=== PATIENT | male | born 1950 | race Hispanic/Latino ===

== ENCOUNTER 2016-09-27 09:10 | Day surgery (SDC) | payer MEDICARE, OTHER ==
[2014-12-28 22:22] VITALS: BMI 36.9
[2016-09-27 09:42] VITALS: TEMP 98.5
[2016-09-27] MEDS ORDERED: Propofol 10 mg/ml Inj (20 ML) ONE ×2 (10:31→11:05)
[2016-09-27] MEDS ORDERED: Lidocaine 1% Inj (20ml) ONE (10:32)
[2016-09-27] MEDS ORDERED: Midazolam 2 MG/2 ML VIAL ONE (10:32)
[2016-09-27] MEDS ORDERED: Simethicone 40 mg/0.6 ml Liquid (30 ml) ONE (10:41)
[2016-09-27] MEDS ORDERED: Sodium Chloride 0.9% 1,000 ML IV SCH (11:30)
[2016-09-27 11:51] VITALS: PULSE 79; RESP 16
[2016-09-27 13:26] VITALS: BP 124/82; O2SAT 96
== END 2016-09-27 13:21 | disposition home or self-care (01) ==
LOC: ENDO 09:10
PROVIDERS: ATTEND Internal Medicine Gastroenterology
DX: Z12.11 Encounter for screening for malignant neoplasm of colon (principal); K64.8 Other hemorrhoids; K51.90 Ulcerative colitis, unspecified, without complications; K22.70 Barrett's esophagus without dysplasia; K29.50 Unspecified chronic gastritis without bleeding; Z98.890 Other specified postprocedural states; I10 Essential (primary) hypertension; J44.9 Chronic obstructive pulmonary disease, unspecified; Z90.49 Acquired absence of other specified parts of digestive tract; Z79.899 Other long term (current) drug therapy; K21.9 Gastro-esophageal reflux disease without esophagitis
CPT/HCPCS: 45380; 43239; 88305; 88312; 88342; J2250; J2704; J7040 ×2

== ENCOUNTER 2017-02-17 21:29 | Inpatient (IN) | payer MEDICARE, OTHER ==
[2017-02-17 21:35] VITALS: BMI 36.5
--- NOTE | 2017-02-17 21:50 | ED PDOC ---
Arrival/HPI - General Historian: Patient <Melody Glasgow A - Last Filed: 02/17/17 23:36> <Angelito Almaguer - Last Filed: 02/18/17 00:02> - General Chief Complaint: Lower Extremity Problem/Injury Time Seen by Provider: 02/17/17 21:40 - History of Present Illness Narrative History of Present Illness (Text): 02/17/17 21:48 66yo male with PMHx of hypertension, COPD, Hypercholestremia, biba for right ankle pain s/p trauma. Patient notes that he "stumbled" while getting out of his car this evening. Reports drinking alcohol s/p. Denies hitting head anywhere. denies LOC. Denies any other complaint. (Melody Glasgow A) Past Medical History - Provider Review Nursing Documentation Reviewed: Yes - Infectious Disease Hx of Infectious Diseases: None - Tetanus Immunization Tetanus Immunization: Unknown - Cardiac Hx Hypertension: Yes Hx Pacemaker: No - Pulmonary Hx Chronic Obstructive Pulmonary Disease (COPD): Yes - Neurological Hx Paralysis: No - HEENT Hx HEENT Disorder: No - Renal Hx Renal Disorder: No - Endocrine/Metabolic Hx Endocrine Disorders: No - Hematological/Oncological Hx Blood Transfusions: No - Integumentary Hx Dermatological Disorder: No - Musculoskeletal/Rheumatological Hx Musculoskeletal Disorders: Yes - Gastrointestinal Hx Gastrointestinal Disorders: Yes Hx Crohn's Disease: (colitis) Other/Comment: Colitis, - Genitourinary/Gynecological Hx Genitourinary Disorders: No - Psychiatric Hx Emotional Abuse: No Hx Physical Abuse: No Hx Substance Use: No - Surgical History Hx Arthroscopy: Yes (Bilateral knees) Hx Orthopedic Surgery: Yes (C5-C6 fusion) Hx Tonsillectomy: Yes Other/Comment: Colon resection secondary to colitis - Anesthesia Hx Anesthesia: Yes Hx Anesthesia Reactions: Yes ("INTENSE STOMACH PAIN") Hx Malignant Hyperthermia: No - Suicidal Assessment Feels Threatened In Home Enviroment: No <Melody Glasgow A - Last Filed: 02/17/17 23:36> Family/Social History - Physician Review Nursing Documentation Reviewed: Yes Family/Social History: Unknown Family HX Smoking Status: Current Some Days Smoker Hx Alcohol Use: Yes (SOCIAL) Hx Substance Use: No Hx Substance Use Treatment: No <Melody Glasgow A - Last Filed: 02/17/17 23:36> Allergies/Home Meds <Melody Glasgow - Last Filed: 02/17/17 23:36> <TrippAngelito - Last Filed: 02/18/17 00:02> Allergies/Adverse Reactions: Allergies codeine Allergy (Verified 02/17/17 21:35) PAIN morphine Allergy (Verified 02/17/17 21:35) PAIN Home Medications: Home Meds Medication Instructions Recorded Confirmed Mesalamine [Apriso] 4 tab PO DAILY 07/04/13 02/17/17 amLODIPine [Norvasc] 5 mg PO DAILY 07/04/13 02/17/17 Arformoterol [Brovana] 5 mcg NEB BID 07/25/14 02/17/17 Budesonide [Pulmicort Respules] 0.25 mg NEB BID 07/25/14 02/17/17 Ibuprofen [Motrin Tab] 200 mg PO PRN PRN 07/25/14 02/17/17 Tiotropium [Spiriva] 18 mcg IH DAILY 07/25/14 02/17/17 Lansoprazole [Prevacid] 30 mg PO DAILY 09/19/16 02/17/17 Valsartan [Diovan] 160 mg PO DAILY 09/19/16 02/17/17 Review of Systems - Physician Review All systems were reviewed & negative as marked: Yes - Review of Systems Constitutional: Normal Eyes: Normal ENT: Normal Respiratory: Normal Cardiovascular: Normal Gastrointestinal: Normal Genitourinary Male: Normal Musculoskeletal: Arthralgias (Right ankle pain) Skin: Normal Neurological: Normal Endocrine: Normal Hemo/Lymphatic: Normal Psychiatric: Normal <Melody Glasgow - Last Filed: 02/17/17 23:36> Physical Exam Vital Signs Reviewed: Yes Temperature: Afebrile Blood Pressure: Normal Pulse: Regular Respiratory Rate: Normal Appearance: Positive for: Well-Appearing, Non-Toxic, Comfortable, Other ( Morbidly obese) Pain Distress: None Mental Status: Positive for: Alert and Oriented X 3 - Systems Exam Head: Present: Atraumatic, Normocephalic Pupils: Present: PERRL Extroacular Muscles: Present: EOMI Conjunctiva: Present: Normal Mouth: Present: Moist Mucous Membranes Neck: Present: Normal Range of Motion Respiratory/Chest: Present: Clear to Auscultation, Good Air Exchange. No: Respiratory Distress, Accessory Muscle Use Cardiovascular: Present: Regular Rate and Rhythm, Normal S1, S2. No: Murmurs Abdomen: Present: Normal Bowel Sounds. No: Tenderness, Distention, Peritoneal Signs Back: Present: Normal Inspection Upper Extremity: Present: Normal Inspection. No: Cyanosis, Edema Lower Extremity: Present: NORMAL PULSES, Tenderness (Right ankle ), Swelling, Deformity, Neurovascularly Intact. No: Edema, CALF TENDERNESS, Normal ROM ( Unable to ascess secondary to pain) Neurological: Present: GCS=15, CN II-XII Intact, Speech Normal Skin: Present: Warm, Dry, Normal Color. No: Rashes Psychiatric: Present: Alert, Oriented x 3, Normal Insight, Normal Concentration <DiruHappiness A - Last Filed: 02/17/17 23:36> Vital Signs Temp Pulse Resp BP Pulse Ox 02/17/17 21:47 98.3 F 88 18 122/83 97 Medical Decision Making <PeeHappiness A - Last Filed: 02/17/17 23:36> <Angelito Almaguer - Last Filed: 02/18/17 00:02> ED Course and Treatment: 02/17/17 23:28 PT in ED for stated history. He denied any opiate in Ed, states he is allergic to it. His pain was controlled with with Toradol and Tylenol. He is NVI. Right ankle xray - Trimalleolar fracture with displaced and comminuted distal fibula. Posterior and sugar tong splint was placed. Labs ordered for admission. Case was DANILO Jeff. He requested that pt be admitted to the PMD and he will take pt to OR tomorrow. Case was DANILO jaramillo while he was in ED and he accepted pt for admission. Xray result and plan was DW the pt and he agreed. (Diru,Happiness A) - Lab Interpretations Lab Results: 02/17/17 23:04 Lab Results 02/17/17 23:04: Sodium 134, Potassium 4.2, Chloride 95 L, Carbon Dioxide 26, Anion Gap 17, BUN 11, Creatinine 0.9, Est GFR ( Amer) > 60, Est GFR (Non- Af Amer) > 60, Random Glucose 111 H, Calcium 9.0, Total Bilirubin 0.7, AST 30, ALT 25, Alkaline Phosphatase 67, Total Protein 8.1, Albumin 4.5, Globulin 3.5, Albumin/Globulin Ratio 1.3 02/17/17 23:04: PT 11.4, INR 1.04, APTT 25.5 - RAD Interpretation Radiology Orders: 02/17/17 21:40 ANKLE RIGHT 3 VIEWS ROUTINE [RAD] Stat 02/17/17 21:43 TIBIA FIBULA RIGHT [RAD] Stat 02/17/17 23:16 CHEST PORTABLE [RAD] Stat - Medication Orders Current Medication Orders: Discontinued Medications Ketorolac Tromethamine (Toradol) 60 mg IM STAT STA Stop: 02/17/17 21:45 Last Admin: 02/17/17 22:03 Dose: 60 mg MAR Pain Assessment Document 02/17/17 22:03 MAIKEL (Rec: 02/17/17 22:03 MAIKEL [id number]) Pain Reassessment Is this a pain reassessment? 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 KARSON has examined the patient and agrees with the treatment plan. <Angelito Almaguer - Last Filed: 02/18/17 00:02> Disposition/Present on Arrival - Present on Arrival Any Indicators Present on Arrival: No History of DVT/PE: No History of Uncontrolled Diabetes: No Urinary Catheter: No History of Decub. Ulcer: No History Surgical Site Infection Following: None - Disposition Have Diagnosis and Disposition been Completed?: Yes Disposition Time: 23:30 <Melody Glasgow - Last Filed: 02/17/17 23:36> <Angelito Almaguer - Last Filed: 02/18/17 00:02> - Disposition Diagnosis: Trimalleolar fracture Disposition: HOSPITALIZED Patient Problems: Current Active Problems Problem Status Onset Trimalleolar fracture Acute Condition: FAIR Referrals: Gwyn Mcknight MD [Primary Care Provider] - Follow up with primary Forms: [employer] (Romanian)
[2017-02-17 23:21] LABS: ALB/GLOB RATIO 1.3 (1.1-1.8); ALKALINE PHOSPHATASE 67 U/L (38-126); ALT/SGPT 25 U/L (7-56); AST/SGOT 30 U/L (17-59); BILIRUBIN,TOTAL 0.7 mg/dL (0.2-1.3); BLOOD UREA NITROGEN 11 mg/dL (7-21); CARBON DIOXIDE 26 mmol/L (21-33); CHLORIDE 95 mmol/L (98-107); GFR AFRICAN-AMERICAN > 60; GLUCOSE,RANDOM 111 mg/dL (70-110); POTASSIUM 4.2 mmol/L (3.6-5.0); SODIUM 134 mmol/L (132-148); TOTAL PROTEIN 8.1 g/dL (5.8-8.3)
[2017-02-17 23:50] LABS: INR 1.04 (0.93-1.08)
[2017-02-17 23:51] LABS: PARTIAL THROMBOPLASTIN TIME 25.5 Seconds (25.1-36.5)
--- NOTE | 2017-02-18 00:12 | CP.PCM.HP ---
History of Present Illness - History of Present Illness History of Present Illness: CC: Fall, Ankle Pain Subjective: HPI: Patient is a 66 year old male with past medical history of COPD, HTN, and colitis who presents to the emergency department via EMS for evaluation and treatment of a fall and right ankle pain. The patient states that he was drinking alcohol (3 shots of hard liquor and 6 beers) which is greater than his normal regiment of drinking a couple of beers twice a week. Patient fell while trying to get out of the car. Denies LOC, head trauma, and dizziness. Patient denies intractable headache, fever, chills, dizziness, blurry vision, ringing in the ears, chest pain, shortness of breath, abdominal pain, nausea, vomiting, diarrhea, constipation, and urinary symptoms. ROS: 12 point review of systems negative except as indicated in HPI PMHx: COPD, HTN, colitis PSHx: cholecystectomy, colectomy (8inches total), bilateral knee surgeries, cervical spine fusion (unsure of levels), tonsilectomy Allergies: NDKA Family Hx: noncontributory Social Hx: social ETOH use, quit 2 years ago however smoked 1-1.5 ppd for 40 years, denies illicit drug use Medications: Please see medication reconciliation Physical Examination: - Constitutional Appears: Non-toxic, No Acute Distress - Head Exam Head Exam: atraumatic, normocephalic - Eye Exam Eye Exam: Normal appearance, PERRL. absent: Scleral icterus - ENT Exam ENT Exam: Mucous Membranes Moist - Neck Exam Neck exam: Normal Inspection - Respiratory Exam Respiratory Exam: Normal Breathing Pattern - Cardiovascular Exam Cardiovascular Exam: +S1, +S2. absent: Gallop, JVD - GI/Abdominal Exam GI & Abdominal Exam: Normal Bowel Sounds, absent: Distended, Guarding, Pulsatile Mass, Rebound, Rigid - Extremities Exam Extremities exam: right ankle is wrapped in mally bandage, as per witness ankle joint was displaced; right upper extremity- minor skin tears on dorsal aspect of digits 2-5 - Neurological Exam Neurological exam: Patient is awake, alert, responds to verbal stimuli, answers questions appropriately, follows commands, and moves extremities past midline - Psychiatric Exam Psychiatric exam: Normal Affect, Normal Mood - Skin Skin Exam: right upper extremity- minor skin tears on dorsal aspect of digits 2 -5 Assessment and Plan: Patient is a 66 year old male with past medical history of COPD, HTN, colitis who is admitted for evaluation and treatment of a fall and right ankle pain. Mechanical Fall; Right Lower Extremity Injury - Orthopedic surgery consulted- appreciate recommendations - Toradol given in ED for pain control - Right ankle and tibia/fibula xrays are pending offical reads at time of admission - NPO - IVF nS @ 100 - Further pain control with tylenol as patient is allergic to morphine/codeine and NSAIDs are contraindicated as patient may need operative correction of the right lower extremity Chronic COPD - duobnebs q4 prn - no solumedrol as patient is not wheezing - consider pulmonology consult pending clinical course Potential ETOH Withdrawal - no ETOH level or ordered by ED CIWA - high risk fall precautions - consider ativan 1mg q6 prn withdrawl symptoms - consider adding librium or geodon if sxs are not controlled - multivitamin, thiamine, and folate supplement Hx of Htn - c/w - hydralazine 5mg IV q6 prn SBP > 180, holding parameters- do not administer if HR is > 100 bpm Prophylaxis - DVT ppx- subq heparin as per lefty score - GI ppx- famotidine CBC is pending prior to admit order being placed by ED Patient case discussed with and plan approved by attending physician. 02/17/17 23:56 Past Patient History - Infectious Disease Hx of Infectious Diseases: None - Tetanus Immunizations Tetanus Immunization: Unknown - Past Social History Smoking Status: Current Some Days Smoker - CARDIAC Hx Hypertension: Yes Hx Pacemaker: No - PULMONARY Hx Chronic Obstructive Pulmonary Disease (COPD): Yes - NEUROLOGICAL Hx Paralysis: No - HEENT Hx HEENT Problems: No - RENAL Hx Chronic Kidney Disease: No - ENDOCRINE/METABOLIC Hx Endocrine Disorders: No - HEMATOLOGICAL/ONCOLOGICAL Hx Blood Transfusions: No - INTEGUMENTARY Hx Dermatological Problems: No - MUSCULOSKELETAL/RHEUMATOLOGICAL Hx Musculoskeletal Disorders: Yes - GASTROINTESTINAL Hx Gastrointestinal Disorders: Yes Hx Crohn's Disease: (colitis) Other/Comment: Colitis, - GENITOURINARY/GYNECOLOGICAL Hx Genitourinary Disorders: No - PSYCHIATRIC Hx Emotional Abuse: No Hx Physical Abuse: No Hx Substance Use: No - SURGICAL HISTORY Hx Arthroscopy: Yes (Bilateral knees) Hx Orthopedic Surgery: Yes (C5-C6 fusion) Hx Tonsillectomy: Yes Other/Comment: Colon resection secondary to colitis - ANESTHESIA Hx Anesthesia: Yes Hx Anesthesia Reactions: Yes ("INTENSE STOMACH PAIN") Hx Malignant Hyperthermia: No Meds Allergies/Adverse Reactions: Allergies Allergy/AdvReac Type Severity Reaction Status Date / Time codeine Allergy PAIN Verified 02/17/17 21:35 morphine Allergy PAIN Verified 02/17/17 21:35 Results - Vital Signs Recent Vital Signs: Last Vital Signs Temp 98.3 F 02/17/17 21:47 Pulse 88 02/17/17 21:47 Resp 18 02/17/17 21:47 BP 122/83 02/17/17 21:47 Pulse Ox 97 02/17/17 21:47 - Labs Result Diagrams: 02/17/17 23:04 Labs: Laboratory Results - last 24 hr 02/17/17 02/17/17 23:04 23:04 PT 11.4 INR 1.04 APTT 25.5 Sodium 134 Potassium 4.2 Chloride 95 L Carbon Dioxide 26 Anion Gap 17 BUN 11 Creatinine 0.9 Est GFR ( Amer) > 60 Est GFR (Non-Af Amer) > 60 Random Glucose 111 H Calcium 9.0 Total Bilirubin 0.7 AST 30 ALT 25 Alkaline Phosphatase 67 Total Protein 8.1 Albumin 4.5 Globulin 3.5 Albumin/Globulin Ratio 1.3
--- NOTE | 2017-02-18 00:19 | CP.PCM.HP ---
History of Present Illness - History of Present Illness History of Present Illness: CC: Fall, Ankle Pain Subjective: HPI: Patient is a 66 year old male with past medical history of COPD, HTN, and colitis who presents to the emergency department via EMS for evaluation and treatment of a fall and right ankle pain. The patient states that he was drinking alcohol (3 shots of hard liquor and 6 beers) which is greater than his normal regimen of drinking a couple of beers twice a week. Patient fell while trying to get out of the car. Denies LOC, head trauma, and dizziness. Admit to the localized right ankle pain. Sharp in nature. Originally 10/10 mildly improved after receiving toradol in ED. Patient denies intractable headache, fever, chills, dizziness, blurry vision, ringing in the ears, chest pain, shortness of breath, abdominal pain, nausea, vomiting, diarrhea, constipation, and urinary symptoms. ROS: 12 point review of systems negative except as indicated in HPI PMHx: COPD, HTN, colitis PSHx: cholecystectomy, colectomy (8inches total), bilateral knee surgeries, cervical spine fusion (unsure of levels), tonsilectomy Allergies: NDKA Family Hx: noncontributory Social Hx: social ETOH use, quit 2 years ago however smoked 1-1.5 ppd for 40 years, denies illicit drug use Medications: Please see medication reconciliation Physical Examination: - Constitutional Appears: Non-toxic, No Acute Distress - Head Exam Head Exam: atraumatic, normocephalic - Eye Exam Eye Exam: Normal appearance, PERRL. absent: Scleral icterus - ENT Exam ENT Exam: Mucous Membranes Moist - Neck Exam Neck exam: Normal Inspection - Respiratory Exam Respiratory Exam: Normal Breathing Pattern - Cardiovascular Exam Cardiovascular Exam: +S1, +S2. absent: Gallop, JVD - GI/Abdominal Exam GI & Abdominal Exam: Normal Bowel Sounds, absent: Distended, Guarding, Pulsatile Mass, Rebound, Rigid - Extremities Exam Extremities exam: right ankle is wrapped in mally bandage, as per witness ankle joint was displaced; right upper extremity- minor skin tears on dorsal aspect of digits 2-5 - Neurological Exam Neurological exam: Patient is awake, alert, responds to verbal stimuli, answers questions appropriately, follows commands, and moves extremities past midline - Psychiatric Exam Psychiatric exam: Normal Affect, Normal Mood - Skin Skin Exam: right upper extremity- minor skin tears on dorsal aspect of digits 2 -5 Assessment and Plan: Patient is a 66 year old male with past medical history of COPD, HTN, colitis who is admitted for evaluation and treatment of a fall and right ankle pain. Mechanical Fall; Right Lower Extremity Injury - Orthopedic surgery consulted- appreciate recommendations - Toradol given in ED for pain control - Right ankle and tibia/fibula xrays are pending offical reads at time of admission - NPO - IVF nS @ 100 - Further pain control with tylenol as patient is allergic to morphine/codeine and NSAIDs are contraindicated as patient may need operative correction of the right lower extremity Chronic COPD - duobnebs q4 prn - no solumedrol as patient is not wheezing - consider pulmonology consult pending clinical course Potential ETOH Withdrawal - no ETOH level or ordered by ED- will order ETOH level and UDS - CIWA - high risk fall precautions - consider ativan 1mg q6 prn withdrawl symptoms pending clinical course - no need for multivitamin, thiamine, and folate supplement at this time Hx of Htn - confirm home medications dosages prior to administering - hydralazine 5mg IV q6 prn SBP > 180, holding parameters- do not administer if HR is > 100 bpm Prophylaxis - DVT ppx- subq heparin as per lefty score - GI ppx- famotidine CBC is pending prior to admit order being placed by ED Patient case discussed with and plan approved by attending physician. 02/17/17 23:56 Present on Admission - Present on Admission Any Indicators Present on Admission: No Past Patient History - Infectious Disease Hx of Infectious Diseases: None - Tetanus Immunizations Tetanus Immunization: Unknown - Past Social History Smoking Status: Current Some Days Smoker - CARDIAC Hx Hypertension: Yes Hx Pacemaker: No - PULMONARY Hx Chronic Obstructive Pulmonary Disease (COPD): Yes - NEUROLOGICAL Hx Paralysis: No - HEENT Hx HEENT Problems: No - RENAL Hx Chronic Kidney Disease: No - ENDOCRINE/METABOLIC Hx Endocrine Disorders: No - HEMATOLOGICAL/ONCOLOGICAL Hx Blood Transfusions: No - INTEGUMENTARY Hx Dermatological Problems: No - MUSCULOSKELETAL/RHEUMATOLOGICAL Hx Musculoskeletal Disorders: Yes - GASTROINTESTINAL Hx Gastrointestinal Disorders: Yes Hx Crohn's Disease: (colitis) Other/Comment: Colitis, - GENITOURINARY/GYNECOLOGICAL Hx Genitourinary Disorders: No - PSYCHIATRIC Hx Emotional Abuse: No Hx Physical Abuse: No Hx Substance Use: No - SURGICAL HISTORY Hx Arthroscopy: Yes (Bilateral knees) Hx Orthopedic Surgery: Yes (C5-C6 fusion) Hx Tonsillectomy: Yes Other/Comment: Colon resection secondary to colitis - ANESTHESIA Hx Anesthesia: Yes Hx Anesthesia Reactions: Yes ("INTENSE STOMACH PAIN") Hx Malignant Hyperthermia: No Meds Allergies/Adverse Reactions: Allergies Allergy/AdvReac Type Severity Reaction Status Date / Time codeine Allergy PAIN Verified 02/17/17 21:35 morphine Allergy PAIN Verified 02/17/17 21:35 Results - Vital Signs Recent Vital Signs: Last Vital Signs Temp 98.3 F 02/17/17 21:47 Pulse 88 02/17/17 21:47 Resp 18 02/17/17 21:47 BP 122/83 02/17/17 21:47 Pulse Ox 97 02/17/17 21:47 - Labs Result Diagrams: 02/17/17 23:04 Labs: Laboratory Results - last 24 hr 02/17/17 02/17/17 23:04 23:04 PT 11.4 INR 1.04 APTT 25.5 Sodium 134 Potassium 4.2 Chloride 95 L Carbon Dioxide 26 Anion Gap 17 BUN 11 Creatinine 0.9 Est GFR ( Amer) > 60 Est GFR (Non-Af Amer) > 60 Random Glucose 111 H Calcium 9.0 Total Bilirubin 0.7 AST 30 ALT 25 Alkaline Phosphatase 67 Total Protein 8.1 Albumin 4.5 Globulin 3.5 Albumin/Globulin Ratio 1.3
[2017-02-18] MEDS: Sodium Chloride 0.9% 1,000 ML IV SCH ×2 (00:29→12:19)
[2017-02-18 03:35] LABS: BASO # 0.03 K/mm3 (0.0-2.0); BASO % 0.3 % (0.0-3.0); EOS # 0.1 (0.0-0.7); EOS % 1.4 % (1.5-5.0); GRAN # 6.99 (1.4-6.5); GRAN % 67.5 % (50.0-68.0); HEMATOCRIT 44.6 % (42.0-52.0); LYMPH # 2.5 (1.2-3.4); LYMPH % 24.5 % (22.0-35.0); MEAN CELL VOLUME 92.3 fl (80.0-105.0); MEAN CORPUSCULAR HEMOGLOBIN 31.3 pg (25.0-35.0); MEAN CORPUSCULAR HGB CONC 33.9 g/dl (31.0-37.0); MEAN PLATELET VOLUME 10.2 fl (7.0-11.0); MONO # 0.7 (0.1-0.6); MONO % 6.3 % (1.0-6.0); RED CELL DISTRIBUTION WIDTH 12.5 % (11.5-14.5); WHITE BLOOD COUNT 10.4 10^3/ul (4.5-11.0)
[2017-02-18 07:37] LABS: BASO # 0.02 K/mm3 (0.0-2.0); BASO % 0.2 % (0.0-3.0); EOS # 0.2 (0.0-0.7); EOS % 1.6 % (1.5-5.0); GRAN # 8.44 (1.4-6.5); GRAN % 69.6 % (50.0-68.0); HEMATOCRIT 40.6 % (42.0-52.0); LYMPH # 2.7 (1.2-3.4); LYMPH % 21.9 % (22.0-35.0); MEAN CELL VOLUME 90.8 fl (80.0-105.0); MEAN CORPUSCULAR HEMOGLOBIN 30.9 pg (25.0-35.0); MEAN PLATELET VOLUME 9.9 fl (7.0-11.0); MONO # 0.8 (0.1-0.6); MONO % 6.7 % (1.0-6.0); RED CELL DISTRIBUTION WIDTH 12.5 % (11.5-14.5); WHITE BLOOD COUNT 12.1 10^3/ul (4.5-11.0)
[2017-02-18 08:20] LABS: ALB/GLOB RATIO 1.2 (1.1-1.8); ALKALINE PHOSPHATASE 65 U/L (38-126); ALT/SGPT 29 U/L (7-56); AST/SGOT 26 U/L (17-59); BILIRUBIN,TOTAL 0.8 mg/dL (0.2-1.3); BLOOD UREA NITROGEN 9 mg/dL (7-21); CALCIUM 8.3 mg/dL (8.4-10.5); CARBON DIOXIDE 20 mmol/L (21-33); CHLORIDE 101 mmol/L (98-107); GFR AFRICAN-AMERICAN > 60; GLUCOSE,RANDOM 89 mg/dL (70-110); POTASSIUM 3.8 mmol/L (3.6-5.0); SODIUM 134 mmol/L (132-148)
--- NOTE | 2017-02-18 09:27 | RAD ---
PROCEDURE: Right ankle dated 02/17/2017 HISTORY: Status post trauma with ankle pain. COMPARISON: No prior however correlation made with concurrent radiographs of the right tibia and fibula. FINDINGS: BONES: Fracture dislocation of the distal tibia and fibula. There is medial and anterior displacement of the right distal fibula. There also appears to be medial displacement of the proximal fibular fragment as well with widening of the anteromedial aspect of the of the ankle mortise. . Surrounding soft tissue swelling with infiltration subcutaneous tissues that extends proximally over the distal 1/2 of the right lower extremity JOINTS: Normal. No osteoarthritis. Ankle mortise maintained. Talar dome intact SOFT TISSUES: Normal. OTHER FINDINGS: None. IMPRESSION: Fracture dislocation of the distal tibia and fibula with medial displacement of the distal tibia and fibula with respect to the talar dome. There is widening of the anteromedial aspect of the ankle mortise
--- NOTE | 2017-02-18 09:29 | RAD ---
PROCEDURE: Right tibia and fibula dated 02/17/2017. HISTORY: ankle pain COMPARISON: Correlation made with concurrent radiographs of the right ankle TECHNIQUE: AP and lateral views performed. FINDINGS: BONES: Fracture dislocation of the distal tibia and fibula poorly seen due to patient positioning however please refer to concurrent radiographs and corresponding report right ankle. Remaining osseous structures appear intact. JOINT SPACES: Tricompartmental degenerative changes of the right knee most notably affecting the lateral and patellofemoral compartments OTHER FINDINGS: Infiltration changes within the subcutaneous tissues of the over the distal 1/2 of the right lower extremity. IMPRESSION: Fracture dislocation distal tibia fibula poorly seen due to patient positioning for this radiograph ; please refer to concurrent radiographs and corresponding report right ankle DJD right knee.
--- NOTE | 2017-02-18 09:29 | RAD ---
HISTORY: admission COMPARISON: Comparison made with prior study 06/25/2015. FINDINGS: LUNGS: No active pulmonary disease. PLEURA: No significant pleural effusion identified, no pneumothorax apparent. CARDIOVASCULAR: Heart appears borderline/ mildly enlarged OSSEOUS STRUCTURES: No significant abnormalities. VISUALIZED UPPER ABDOMEN: Normal. OTHER FINDINGS: None. IMPRESSION: No active disease.
[2017-02-18] MEDS ORDERED: Non Formulary Medication (Valsartan [Diovan] 160 MG) PO SCH (10:00)
[2017-02-18] MEDS ORDERED: MESALAMINE PO SCH (10:00)
[2017-02-18] MEDS ORDERED: Budesonide 0.25 mg/2 ml Inhal Susp UD INH SCH (10:00)
--- NOTE | 2017-02-18 10:43 | CARD ---
APPROVED REPORT EKG Measurement Heart [id number] <Conclusion> Normal sinus rhythm Low voltage QRS Borderline ECG
[2017-02-18] MEDS ORDERED: Succinylcholine 200 mg/10 ml Inj IV ONE (11:53)
[2017-02-18] MEDS ORDERED: Midazolam 2 MG/2 ML VIAL ONE (11:53)
[2017-02-18] MEDS ORDERED: Rocuronium 10 mg/ml (5 ml) ONE (11:53)
[2017-02-18] MEDS ORDERED: Propofol 10 mg/ml Inj (20 ML) ONE (11:54)
[2017-02-18] MEDS: MESALAMINE PO SCH (12:18)
[2017-02-18] MEDS: Tiotropium 18 mcg Cap For Inhalation IH SCH (12:19)
[2017-02-18] MEDS ORDERED: Neostigmine Methylsulfate 3mg/3ml Syringe IV ONE (12:48)
[2017-02-18] MEDS ORDERED: Sodium Chloride 0.9% 1,000 ML IV SCH (13:45)
[2017-02-18] MEDS: ceFAZolin 1 GM in Sodium Chloride 0.9% 50 ML IVPB SCH ×2 (19:20→22:13)
[2017-02-18] MEDS: Albuterol-Ipratrop 3 mg / 0.5 (3 ml) UD IH PRN (21:10)
[2017-02-18] MEDS: Budesonide 0.25 mg/2 ml Inhal Susp UD IH SCH (21:10)
--- NOTE | 2017-02-19 00:06 | OP ---
PROCEDURE DATE: 02/18/2017 PREOPERATIVE DIAGNOSIS: Highly comminuted swollen displaced fracture dislocation of right ankle with comminuted lateral malleolus and medial malleolus and posterior dislocation of talus and lateral subluxation of the talus. POSTOPERATIVE DIAGNOSIS: Highly comminuted swollen displaced fracture dislocation of right ankle with comminuted lateral malleolus and medial malleolus and posterior dislocation of talus and lateral subluxation of the talus. PROCEDURE: Closed reduction and application of transarticular external fixator from [employer] with three carbon rods incorporating the tibia and the calcaneus and the first metatarsal. TYPE OF ANESTHESIA: General endotracheal tube. DESCRIPTION OF PROCEDURE: The patient was taken to the OR, right ankle prepped and draped in sterile fashion. Seeing that we could reduce with a C-arm, it was highly displaced and comminuted, too swollen laterally and medially, more medially to do an open reduction and internal fixation safely, so we put the external fixator on, general anesthesia via endotracheal tube, incorporating the two pins, hairpins in the tibia, one [id number] pin for the calcaneus, connecting them with the carbon fiber rods that held the fracture reduced, and we dorsiflexed the foot to stabilize the reduction of theankle. All our pins were put in with stab wounds. Sterile dressing was done with compression and sent to recovery room in good condition. Naga Jeff DO YOEL
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
[2017-02-19] MEDS: Sodium Chloride 0.9% 1,000 ML IV SCH (06:19)
[2017-02-19] MEDS: Budesonide 0.25 mg/2 ml Inhal Susp UD IH SCH ×2 (08:08→20:38)
[2017-02-19 08:11] LABS: BASO # 0.02 K/mm3 (0.0-2.0); BASO % 0.2 % (0.0-3.0); EOS # 0.1 (0.0-0.7); EOS % 1.7 % (1.5-5.0); GRAN # 5.49 (1.4-6.5); GRAN % 66.2 % (50.0-68.0); HEMATOCRIT 39.1 % (42.0-52.0); LYMPH # 1.9 (1.2-3.4); LYMPH % 23.3 % (22.0-35.0); MEAN CELL VOLUME 92.9 fl (80.0-105.0); MEAN CORPUSCULAR HEMOGLOBIN 31.6 pg (25.0-35.0); MONO # 0.7 (0.1-0.6); MONO % 8.6 % (1.0-6.0); RED CELL DISTRIBUTION WIDTH 12.8 % (11.5-14.5); WHITE BLOOD COUNT 8.3 10^3/ul (4.5-11.0)
[2017-02-19 08:20] LABS: ALB/GLOB RATIO 1.1 (1.1-1.8); ALKALINE PHOSPHATASE 62 U/L (38-126); ALT/SGPT 25 U/L (7-56); AST/SGOT 27 U/L (17-59); BILIRUBIN,TOTAL 1.2 mg/dL (0.2-1.3); BLOOD UREA NITROGEN 11 mg/dL (7-21); CALCIUM 8.4 mg/dL (8.4-10.5); CARBON DIOXIDE 23 mmol/L (21-33); CHLORIDE 107 mmol/L (98-107); GFR AFRICAN-AMERICAN > 60; GLUCOSE,RANDOM 104 mg/dL (70-110); SODIUM 139 mmol/L (132-148); TOTAL PROTEIN 6.6 g/dL (5.8-8.3)
[2017-02-19] MEDS: Enoxaparin 30 mg Syringe SC SCH (10:38)
[2017-02-19] MEDS: Aspirin 325 mg EC Tablets PO SCH (10:39)
[2017-02-19] MEDS: POLYETHYLENE GLYCOL 3350 17 GM/Dose PACKET PO SCH (10:40)
[2017-02-19] MEDS: MESALAMINE PO SCH (10:40)
[2017-02-19] MEDS: Tiotropium 18 mcg Cap For Inhalation IH SCH (10:41)
--- NOTE | 2017-02-19 13:10 | CP.PCM.PN ---
<Brandi Coe - Last Filed: 02/19/17 13:15> Subjective - Date & Time of Evaluation Date of Evaluation: 02/19/17 Time of Evaluation: 09:00 - Subjective Subjective: Brandi Coe DO, PGY-1: Hospitalist Service Patient seen and examined at bedside. Patient reports he is urinating fine; has not passed a BM yet. Patient reports pain is well controlled with Toradol. Nurse reports no events overnight. Objective - Vital Signs/Intake and Output Vital Signs (last 24 hours): Temp Pulse Resp BP Pulse Ox 98.4 F 86 19 133/61 96 02/19/17 06:00 02/19/17 06:00 02/19/17 06:00 02/19/17 10:38 02/19/17 06:00 Intake and Output: 02/19/17 02/19/17 06:59 18:59 Intake Total 660 Output Total 1460 Balance -800 - Medications Medications: Current Medications Acetaminophen (Tylenol 325mg Tab) 650 mg PO Q4 PRN PRN Reason: Pain, moderate (4-7) Albuterol/Ipratropium (Duoneb 3 Mg/0.5 Mg (3 Ml) Ud) 3 ml IH [id number] PRN PRN Reason: Shortness of Breath Last Admin: 02/18/17 21:10 Dose: 3 ml Amlodipine Besylate (Norvasc) 5 mg PO DAILY [facility] Last Admin: 02/19/17 10:38 Dose: 5 mg Aspirin (Ecotrin) 325 mg PO DAILY [facility] Last Admin: 02/19/17 10:39 Dose: 325 mg Budesonide (Pulmicort Respules) 0.25 mg IH [id number] [facility] Last Admin: 02/19/17 08:08 Dose: 0.25 mg Docusate Sodium (Colace) 100 mg PO TID [facility] Last Admin: 02/19/17 10:39 Dose: Not Given Enoxaparin Sodium (Lovenox) 30 mg SC DAILY [facility] PRN Reason: Protocol Last Admin: 02/19/17 10:38 Dose: 30 mg Famotidine (Pepcid) 20 mg IVP DAILY [facility] Last Admin: 02/19/17 10:39 Dose: 20 mg Hydralazine HCl (Apresoline) 10 mg IVP Q6 PRN PRN Reason: Systolic Blood Pressure Sodium Chloride (Sodium Chloride 0.9%) 1,000 mls @ 100 mls/hr IV .Q10H [facility] Last Admin: 02/19/17 06:19 Dose: 100 mls/hr Ketorolac Tromethamine (Toradol) 15 mg IVP Q6 PRN PRN Reason: Pain, moderate (4-7) Last Admin: 02/19/17 11:30 Dose: 15 mg Ketorolac Tromethamine (Toradol) 30 mg IVP ONCE PRN PRN Reason: Pain, moderate (4-7) Lorazepam (Ativan) 1 mg IVP Q4 PRN; Protocol PRN Reason: Anxiety Losartan Potassium (Cozaar) 100 mg PO DAILY [facility] Last Admin: 02/19/17 10:38 Dose: 100 mg Non-Formulary Medication (Mesalamine [Apriso]) 4 tab PO DAILY [facility] Last Admin: 02/19/17 10:40 Dose: Not Given Ondansetron HCl (Zofran Inj) 4 mg IVP ONCE PRN PRN Reason: Nausea/Vomiting Polyethylene Glycol (Miralax) 17 gm PO DAILY [facility] Last Admin: 02/19/17 10:40 Dose: Not Given Tiotropium [place] (Spiriva) 18 mcg IH DAILY [facility] Last Admin: 02/19/17 10:41 Dose: 18 mcg - Labs Labs: 02/19/17 07:30 02/19/17 07:30 PT 11.4 SECONDS (9.4-12.5) 02/17/17 23:04 INR 1.04 (0.93-1.08) 02/17/17 23:04 APTT 25.5 Seconds (25.1-36.5) 02/17/17 23:04 - Constitutional Appears: Non-toxic, No Acute Distress - Head Exam Head Exam: ATRAUMATIC, NORMOCEPHALIC - Eye Exam Eye Exam: EOMI, Normal appearance - ENT Exam ENT Exam: Mucous Membranes Moist, Normal Oropharynx - Neck Exam Neck Exam: Normal Inspection - Respiratory Exam Respiratory Exam: Clear to Ausculation Bilateral, NORMAL BREATHING PATTERN - Cardiovascular Exam Cardiovascular Exam: RRR, +S1, +S2 - GI/Abdominal Exam GI & Abdominal Exam: Soft, Normal Bowel Sounds - Extremities Exam Additional comments: right foot/ankle in cast, raised. - Back Exam Back Exam: NORMAL INSPECTION. absent: CVA tenderness (L), CVA tenderness (R) - Neurological Exam Neurological Exam: Alert, Awake, Oriented x3 Additional comments: sensation intact to right lower extremity. Patient can flex and extend toes bilaterally. - Psychiatric Exam Psychiatric exam: Normal Affect, Normal Mood - Skin Skin Exam: Dry, Intact, Normal Color, Warm Assessment and Plan - Assessment and Plan (Free Text) Assessment: Patient is a 66 year old male with past medical history of COPD, HTN, colitis who is admitted for evaluation and treatment of a fall and right ankle pain. Patient was found to have a highly comminuted swollen displaced fracture dislocation of the right ankle with comminuted lateral malleolus and medial malleolus and posterior dislocation of talus and lateral subluxation of the talus. Plan: Mechanical Fall; Right Lower Extremity Injury - Orthopedic surgery, Dr. Jeff, performed closed reduction and application of transarticular external fixator from [employer] with three carbon rods incorporating the tibia and the calcaneus and the first metatarsal - Toradol 15 mg q6h IVP - Docusate 100 mg PO daily - PEG 17 gm PO daily Chronic COPD - Duobnebs q4H prn - Budesonide 0.25 IH q12h Potential ETOH Withdrawal - Blood alcohol level of 191 on admission - CIWA - high risk fall precautions - Ativan 1mg q4h PRN for alcohol withdrawl symptoms Hypertension -Losartan 100 mg PO daily - hydralazine 5mg IV q6 prn SBP > 180, holding parameters- do not administer if HR is > 100 bpm Prophylaxis - DVT ppx- subq heparin as per lefty score - GI ppx- famotidine <Urban Mathis - Last Filed: 02/19/17 15:47> Objective - Vital Signs/Intake and Output Vital Signs (last 24 hours): Temp Pulse Resp BP Pulse Ox 98.4 F 86 19 133/61 96 02/19/17 06:00 02/19/17 06:00 02/19/17 06:00 02/19/17 10:38 02/19/17 06:00 Intake and Output: 02/19/17 02/19/17 06:59 18:59 Intake Total 660 Output Total 1460 Balance -800 - Medications Medications: Current Medications Acetaminophen (Tylenol 325mg Tab) 650 mg PO Q4 PRN PRN Reason: Pain, moderate (4-7) Albuterol/Ipratropium (Duoneb 3 Mg/0.5 Mg (3 Ml) Ud) 3 ml IH [id number] PRN PRN Reason: Shortness of Breath Last Admin: 02/18/17 21:10 Dose: 3 ml Amlodipine Besylate (Norvasc) 5 mg PO DAILY [facility] Last Admin: 02/19/17 10:38 Dose: 5 mg Aspirin (Ecotrin) 325 mg PO DAILY [facility] Last Admin: 02/19/17 10:39 Dose: 325 mg Budesonide (Pulmicort Respules) 0.25 mg IH [id number] [facility] Last Admin: 02/19/17 08:08 Dose: 0.25 mg Docusate Sodium (Colace) 100 mg PO TID [facility] Last Admin: 02/19/17 13:29 Dose: Not Given Enoxaparin Sodium (Lovenox) 30 mg SC DAILY [facility] PRN Reason: Protocol Last Admin: 02/19/17 10:38 Dose: 30 mg Famotidine (Pepcid) 20 mg IVP DAILY [facility] Last Admin: 02/19/17 10:39 Dose: 20 mg Hydralazine HCl (Apresoline) 10 mg IVP Q6 PRN PRN Reason: Systolic Blood Pressure Sodium Chloride (Sodium Chloride 0.9%) 1,000 mls @ 100 mls/hr IV .Q10H [facility] Last Admin: 02/19/17 06:19 Dose: 100 mls/hr Ketorolac Tromethamine (Toradol) 15 mg IVP Q6 PRN PRN Reason: Pain, moderate (4-7) Last Admin: 02/19/17 11:30 Dose: 15 mg Ketorolac Tromethamine (Toradol) 30 mg IVP ONCE PRN PRN Reason: Pain, moderate (4-7) Lorazepam (Ativan) 1 mg IVP Q4 PRN; Protocol PRN Reason: Anxiety Losartan Potassium (Cozaar) 100 mg PO DAILY [facility] Last Admin: 02/19/17 10:38 Dose: 100 mg Non-Formulary Medication (Mesalamine [Apriso]) 4 tab PO DAILY [facility] Last Admin: 02/19/17 10:40 Dose: Not Given Ondansetron HCl (Zofran Inj) 4 mg IVP ONCE PRN PRN Reason: Nausea/Vomiting Polyethylene Glycol (Miralax) 17 gm PO DAILY [facility] Last Admin: 02/19/17 10:40 Dose: Not Given Tiotropium [place] (Spiriva) 18 mcg IH DAILY [facility] Last Admin: 02/19/17 10:41 Dose: 18 mcg Tramadol HCl (Ultram) 50 mg PO TID PRN PRN Reason: Pain, severe (8-10) - Labs Labs: 02/19/17 07:30 02/19/17 07:30 PT 11.4 SECONDS (9.4-12.5) 02/17/17 23:04 INR 1.04 (0.93-1.08) 02/17/17 23:04 APTT 25.5 Seconds (25.1-36.5) 02/17/17 23:04 Attending/Attestation - Attestation I have personally seen and examined this patient.: Yes I have fully participated in the care of the patient.: Yes I have reviewed all pertinent clinical information, including history, physical exam and plan: Yes Notes (Text): 02/19/17 15:39 attending note; Patient seen and examined with resident. Patient is a 66-year-old male admitted with mechanical fall and right ankle fracture. Status post external fixator placement by orthopedics . Pain management with Toradol. hypertension; continue Norvasc and Cozaar. Colitis; continue mesalamine. history of alcohol use; not in withdrawal. Incentive spirometry/DVT prophylaxis. PT evaluation appreciated. Possible rehab versus home with services. upon discharge the patient will follow-up with PMD Dr. Mcknight.
--- NOTE | 2017-02-19 14:54 | RAD ---
PROCEDURE: Right ankle dated the 02/19/2017. HISTORY: Postoperative assessment. COMPARISON: Comparison made with prior radiographs right ankle and right tibia fibula dated 02/17/2017. FINDINGS: Current study reveals interval application of external fixation device with the proximal component attached by 2 threaded screws to the distal tibial shaft and the distal component attached by threaded screw to the proximal 1st metatarsal. Apparent on calcaneal external component as well. . Impression: Status post application external fixation device reducing fractures - dislocation of the distal right tibia/fibula
--- NOTE | 2017-02-19 15:32 | PN ---
DATE: 02/19/2017 POSTOPERATIVE REPORT The patient had surgery yesterday, which is 02/18/2017. The patient underwent closed reduction and application of external fixator of his highly comminuted and swollen right ankle fracture. Wanted to do ORIF, so we temporized the treatment of the ankle fracture with external fixator. When the swelling the goes down enough, we could do a formal open reduction and internal fixation. Occasionally, this might take 10 days to 2 weeks. In the meantime, we will get him to therapy for crutches, ambulate, nonweightbearing on that right leg with either walker or crutches and plan to send him home for a period of time. I could follow him in the office because it is important he does move around and not lay around, ankle has to be elevated. So, going home would be a good thing because he will be forced to move around when he has son to help him and he is pretty physically fit to move around. So, I will see him again probably tomorrow, hopefully we can discharge him with ambulatory devices and see if we can get him to start physical therapy. If not, we will just have to see him in the office in a week, and decide when to bring him back for formal open reduction and internal fixation. Naga Jeff DO
[2017-02-19] MEDS: Albuterol-Ipratrop 3 mg / 0.5 (3 ml) UD IH PRN (20:37)
[2017-02-20] MEDS ORDERED: Pantoprazole 40 mg EC Tab PO SCH (06:00)
[2017-02-20 06:30] LABS: BASO # 0.02 K/mm3 (0.0-2.0); BASO % 0.2 % (0.0-3.0); EOS # 0.2 (0.0-0.7); EOS % 2.2 % (1.5-5.0); GRAN # 5.18 (1.4-6.5); GRAN % 62.7 % (50.0-68.0); HEMATOCRIT 39.1 % (42.0-52.0); LYMPH # 2.2 (1.2-3.4); MEAN CELL VOLUME 94.2 fl (80.0-105.0); MEAN CORPUSCULAR HEMOGLOBIN 30.6 pg (25.0-35.0); MEAN CORPUSCULAR HGB CONC 32.5 g/dl (31.0-37.0); MEAN PLATELET VOLUME 9.9 fl (7.0-11.0); MONO # 0.7 (0.1-0.6); MONO % 7.9 % (1.0-6.0); RED CELL DISTRIBUTION WIDTH 12.9 % (11.5-14.5); WHITE BLOOD COUNT 8.3 10^3/ul (4.5-11.0)
[2017-02-20 07:01] LABS: ALB/GLOB RATIO 1.1 (1.1-1.8); ALKALINE PHOSPHATASE 65 U/L (38-126); ALT/SGPT 26 U/L (7-56); AST/SGOT 29 U/L (17-59); BILIRUBIN,TOTAL 1.1 mg/dL (0.2-1.3); BLOOD UREA NITROGEN 10 mg/dL (7-21); CALCIUM 8.6 mg/dL (8.4-10.5); CARBON DIOXIDE 25 mmol/L (21-33); CHLORIDE 105 mmol/L (98-107); GFR AFRICAN-AMERICAN > 60; GLUCOSE,RANDOM 113 mg/dL (70-110); POTASSIUM 4.2 mmol/L (3.6-5.0); SODIUM 139 mmol/L (132-148); TOTAL PROTEIN 6.9 g/dL (5.8-8.3)
[2017-02-20] MEDS: Enoxaparin 30 mg Syringe SC SCH (09:43)
[2017-02-20] MEDS: POLYETHYLENE GLYCOL 3350 17 GM/Dose PACKET PO SCH (09:44)
[2017-02-20] MEDS: MESALAMINE PO SCH (09:44)
[2017-02-20] MEDS: Tiotropium 18 mcg Cap For Inhalation IH SCH (09:44)
[2017-02-20] MEDS: Aspirin 325 mg EC Tablets PO SCH (09:45)
--- NOTE | 2017-02-20 10:10 | CT ---
PROCEDURE: CT of the right ankle HISTORY: rt ankle fx in ext fixater COMPARISON: Plain films dated 02/17/2017 TECHNIQUE: Radiation dose: Total exam DLP = 293 mGy-cm. This CT exam was performed using one or more of the following dose reduction techniques: Automated exposure control, adjustment of the mA and/or kV according to patient size, and/or use of iterative reconstruction technique. FINDINGS: An external fixation device is in place. The alignment of the ankle joint is restored. There is a displaced comminuted fracture of the lateral malleolus. There is a displaced comminuted fracture of the medial malleolus anteriorly. There is a minimally displaced fracture of the posterior malleolus. The talar dome is intact IMPRESSION: An external fixation device is in place. The alignment of the ankle joint is restored.
[2017-02-20] MEDS: Budesonide 0.25 mg/2 ml Inhal Susp UD IH SCH ×2 (11:00→19:58)
[2017-02-20] MEDS: Albuterol-Ipratrop 3 mg / 0.5 (3 ml) UD IH PRN (11:00)
--- NOTE | 2017-02-20 12:13 | RAD ---
PROCEDURE: Fluoroscopy up to 1 hour HISTORY: EXTERNAL FIXATION OF RIGHT ANKLE FX. COMPARISON: TECHNIQUE: Fluoroscopy was provided in the operating room. 40 seconds of fluoro time were used. Six images were submitted FINDINGS: The study shows placement of an external fixation device. There is improved alignment of the ankle joint. IMPRESSION: As above
--- NOTE | 2017-02-20 14:05 | CP.PCM.DIS ---
<CliffordClifford - Last Filed: 02/20/17 16:06> Provider - Provider Date of Admission: 02/17/17 23:55 Attending physician: Urban Mathis MD Primary care physician: Gwyn Mcknight MD Time Spent in preparation of Discharge (in minutes): 45 Hospital Course - Lab Results Lab Results: Most Recent Lab Values WBC 8.3 10^3/ul (4.5-11.0) 02/20/17 05:30 RBC 4.15 10^6/uL (3.5-6.1) 02/20/17 05:30 Hgb 12.7 g/dL (14.0-18.0) L 02/20/17 05:30 Hct 39.1 % (42.0-52.0) L 02/20/17 05:30 MCV 94.2 fl (80.0-105.0) 02/20/17 05:30 MCH 30.6 pg (25.0-35.0) 02/20/17 05:30 MCHC 32.5 g/dl (31.0-37.0) 02/20/17 05:30 RDW 12.9 % (11.5-14.5) 02/20/17 05:30 Plt Count 196 10^3/uL (120.0-450.0) 02/20/17 05:30 MPV 9.9 fl (7.0-11.0) 02/20/17 05:30 Gran % 62.7 % (50.0-68.0) 02/20/17 05:30 Lymph % (Auto) 27.0 % (22.0-35.0) 02/20/17 05:30 Hill % (Auto) 7.9 % (1.0-6.0) H 02/20/17 05:30 Eos % (Auto) 2.2 % (1.5-5.0) 02/20/17 05:30 Baso % (Auto) 0.2 % (0.0-3.0) 02/20/17 05:30 Gran # 5.18 (1.4-6.5) 02/20/17 05:30 Lymph # 2.2 (1.2-3.4) 02/20/17 05:30 Hill # 0.7 (0.1-0.6) H 02/20/17 05:30 Eos # 0.2 (0.0-0.7) 02/20/17 05:30 Baso # 0.02 K/mm3 (0.0-2.0) 02/20/17 05:30 PT 11.4 SECONDS (9.4-12.5) 02/17/17 23:04 INR 1.04 (0.93-1.08) 02/17/17 23:04 APTT 25.5 Seconds (25.1-36.5) 02/17/17 23:04 Sodium 139 mmol/L (132-148) 02/20/17 05:30 Potassium 4.2 mmol/L (3.6-5.0) 02/20/17 05:30 Chloride 105 mmol/L (98-107) 02/20/17 05:30 Carbon Dioxide 25 mmol/L (21-33) 02/20/17 05:30 Anion Gap 13 (10-20) 02/20/17 05:30 BUN 10 mg/dL (7-21) 02/20/17 05:30 Creatinine 0.9 mg/dl (0.8-1.5) 02/20/17 05:30 Est GFR ( Amer) > 60 02/20/17 05:30 Est GFR (Non-Af Amer) > 60 02/20/17 05:30 Random Glucose 113 mg/dL (70-110) H 02/20/17 05:30 Calcium 8.6 mg/dL (8.4-10.5) 02/20/17 05:30 Total Bilirubin 1.1 mg/dL (0.2-1.3) 02/20/17 05:30 AST 29 U/L (17-59) 02/20/17 05:30 ALT 26 U/L (7-56) 02/20/17 05:30 Alkaline Phosphatase 65 U/L (38-126) 02/20/17 05:30 Total Protein 6.9 g/dL (5.8-8.3) 02/20/17 05:30 Albumin 3.7 g/dL (3.0-4.8) 02/20/17 05:30 Globulin 3.3 gm/dL 02/20/17 05:30 Albumin/Globulin Ratio 1.1 (1.1-1.8) 02/20/17 05:30 Alcohol, Quantitative 191 mg/dL (0-10) H 02/18/17 00:40 - Hospital Course Hospital Course: Patient is a 66 year old male with past medical history of COPD, HTN, and colitis who presents to the emergency department via EMS for evaluation and treatment of a fall and right ankle pain. The patient states that he was drinking alcohol (3 shots of hard liquor and 6 beers) which is greater than his normal regimen of drinking a couple of beers twice a week. Patient fell while trying to get out of the car. Denies LOC, head trauma, and dizziness. Admit to the localized right ankle pain. Sharp in nature. Originally 10/10 mildly improved after receiving toradol in ED. Patient denies intractable headache, fever, chills, dizziness, blurry vision, ringing in the ears, chest pain, shortness of breath, abdominal pain, nausea, vomiting, diarrhea, constipation, and urinary symptoms. The patient was admitted as a result for right distal tibia/fibular fracture. While admitted the patient had ankle xray that showed a fracture of distal tibia/fibula medial displacement of distal tibia and fibula with respect to talar dome. The patient had an alcohol level done that was positive at 191. The patient also had tibula and fibular xray that showed fracture dislocation of distal tibia/fibula. The patient also had a chest xray done that was negative for active disease. The patient was seen by Dr. Jeff who decided to do a external fixation for the time being. The patient is expected to have a formal open reduction and internal fixation once swelling goes down. The patient had a repeat ankle xray that was s/p external fixation reducing fractures and dislocation of right tibia/fibula. The patient was accepted to TCU and discharged there for further physical therapy treatment. Discharge Exam - Head Exam Head Exam: ATRAUMATIC, NORMOCEPHALIC - Eye Exam Eye Exam: EOMI, Normal appearance, PERRL. absent: Periorbital tenderness Pupil Exam: NORMAL ACCOMODATION, PERRL. absent: Irregular, Unequal - ENT Exam ENT Exam: Mucous Membranes Moist, Normal Oropharynx - Neck Exam Neck exam: Lymphadenopathy, Normal Inspection, Thyromegaly - Respiratory Exam Respiratory Exam: Clear to PA & Lateral, NORMAL BREATHING PATTERN, UNREMARKABLE. absent: Chest Wall Tenderness, Prolonged Expiratory Phase, Respiratory Distress - Cardiovascular Exam Cardiovascular Exam: REGULAR RHYTHM, +S1, +S2. absent: JVD, RRR, Rubs - GI/Abdominal Exam GI & Abdominal Exam: Normal Bowel Sounds, Unremarkable. absent: Distended, Firm , Hypoactive Bowel Sounds, Pulsatile Mass, Rebound - Extremities Exam Extremities exam: tenderness Additional comments: external fixator placed on the right ankle - Back Exam Back exam: NORMAL INSPECTION. absent: CVA tenderness (L), CVA tenderness (R), paraspinal tenderness - Neurological Exam Neurological exam: Alert, CN II-XII Intact, Oriented x3, Reflexes Normal - Psychiatric Exam Psychiatric exam: Normal Affect, Normal Mood - Skin Skin Exam: Dry, Intact, Normal Color, Warm Discharge Plan - Follow Up Plan Condition: FAIR Disposition: REHAB FACILITY/REHAB UNIT Instructions: Ankle Fracture (DC) Additional Instructions: 1. Patient to be discharged to TCU for further physical therapy. 2. Patient advised to return to emergency department for any new or worsening symptoms. Referrals: Gwyn Mcknight MD [Primary Care Provider] - <Urban Mathis - Last Filed: 02/20/17 17:13> Provider - Provider Date of Admission: 02/17/17 23:55 Attending physician: Urban Mathis MD Primary care physician: Gwyn Mcknight MD Hospital Course - Lab Results Lab Results: Most Recent Lab Values WBC 8.3 10^3/ul (4.5-11.0) 02/20/17 05:30 RBC 4.15 10^6/uL (3.5-6.1) 02/20/17 05:30 Hgb 12.7 g/dL (14.0-18.0) L 02/20/17 05:30 Hct 39.1 % (42.0-52.0) L 02/20/17 05:30 MCV 94.2 fl (80.0-105.0) 02/20/17 05:30 MCH 30.6 pg (25.0-35.0) 02/20/17 05:30 MCHC 32.5 g/dl (31.0-37.0) 02/20/17 05:30 RDW 12.9 % (11.5-14.5) 02/20/17 05:30 Plt Count 196 10^3/uL (120.0-450.0) 02/20/17 05:30 MPV 9.9 fl (7.0-11.0) 02/20/17 05:30 Gran % 62.7 % (50.0-68.0) 02/20/17 05:30 Lymph % (Auto) 27.0 % (22.0-35.0) 02/20/17 05:30 Hill % (Auto) 7.9 % (1.0-6.0) H 02/20/17 05:30 Eos % (Auto) 2.2 % (1.5-5.0) 02/20/17 05:30 Baso % (Auto) 0.2 % (0.0-3.0) 02/20/17 05:30 Gran # 5.18 (1.4-6.5) 02/20/17 05:30 Lymph # 2.2 (1.2-3.4) 02/20/17 05:30 Hill # 0.7 (0.1-0.6) H 02/20/17 05:30 Eos # 0.2 (0.0-0.7) 02/20/17 05:30 Baso # 0.02 K/mm3 (0.0-2.0) 02/20/17 05:30 PT 11.4 SECONDS (9.4-12.5) 02/17/17 23:04 INR 1.04 (0.93-1.08) 02/17/17 23:04 APTT 25.5 Seconds (25.1-36.5) 02/17/17 23:04 Sodium 139 mmol/L (132-148) 02/20/17 05:30 Potassium 4.2 mmol/L (3.6-5.0) 02/20/17 05:30 Chloride 105 mmol/L (98-107) 02/20/17 05:30 Carbon Dioxide 25 mmol/L (21-33) 02/20/17 05:30 Anion Gap 13 (10-20) 02/20/17 05:30 BUN 10 mg/dL (7-21) 02/20/17 05:30 Creatinine 0.9 mg/dl (0.8-1.5) 02/20/17 05:30 Est GFR ( Amer) > 60 02/20/17 05:30 Est GFR (Non-Af Amer) > 60 02/20/17 05:30 Random Glucose 113 mg/dL (70-110) H 02/20/17 05:30 Calcium 8.6 mg/dL (8.4-10.5) 02/20/17 05:30 Total Bilirubin 1.1 mg/dL (0.2-1.3) 02/20/17 05:30 AST 29 U/L (17-59) 02/20/17 05:30 ALT 26 U/L (7-56) 02/20/17 05:30 Alkaline Phosphatase 65 U/L (38-126) 02/20/17 05:30 Total Protein 6.9 g/dL (5.8-8.3) 02/20/17 05:30 Albumin 3.7 g/dL (3.0-4.8) 02/20/17 05:30 Globulin 3.3 gm/dL 02/20/17 05:30 Albumin/Globulin Ratio 1.1 (1.1-1.8) 02/20/17 05:30 Alcohol, Quantitative 191 mg/dL (0-10) H 02/18/17 00:40 Attending/Attestation - Attestation I have personally seen and examined this patient.: Yes I have fully participated in the care of the patient.: Yes I have reviewed all pertinent clinical information, including history, physical exam and plan: Yes Notes (Text): 02/20/17 17:12 attending note; Patient seen and examined with resident. Patient is a 66-year-old male admitted with mechanical fall and right ankle fracture. Status post external fixator placement by orthopedics . Pain management with Toradol. hypertension; continue Norvasc and Cozaar. Colitis; continue mesalamine. history of alcohol use; not in withdrawal. alcohol cessation is strongly advised. Incentive spirometry/DVT prophylaxis. PT evaluation appreciated. transfer to TCU today. upon discharge the patient will follow-up with PMD Dr. Mcknight. diagnosis; Fall Right ankle fracture Status post external fixator gait instability Hypertension
--- NOTE | 2017-02-20 14:23 | CP.PCM.DIS ---
Provider - Provider Date of Admission: 02/17/17 23:55 Attending physician: Urban Mathis MD Primary care physician: Gwyn Mcknight MD Time Spent in preparation of Discharge (in minutes): 45 Hospital Course - Lab Results Lab Results: Most Recent Lab Values WBC 8.3 10^3/ul (4.5-11.0) 02/20/17 05:30 RBC 4.15 10^6/uL (3.5-6.1) 02/20/17 05:30 Hgb 12.7 g/dL (14.0-18.0) L 02/20/17 05:30 Hct 39.1 % (42.0-52.0) L 02/20/17 05:30 MCV 94.2 fl (80.0-105.0) 02/20/17 05:30 MCH 30.6 pg (25.0-35.0) 02/20/17 05:30 MCHC 32.5 g/dl (31.0-37.0) 02/20/17 05:30 RDW 12.9 % (11.5-14.5) 02/20/17 05:30 Plt Count 196 10^3/uL (120.0-450.0) 02/20/17 05:30 MPV 9.9 fl (7.0-11.0) 02/20/17 05:30 Gran % 62.7 % (50.0-68.0) 02/20/17 05:30 Lymph % (Auto) 27.0 % (22.0-35.0) 02/20/17 05:30 [place] % (Auto) 7.9 % (1.0-6.0) H 02/20/17 05:30 Eos % (Auto) 2.2 % (1.5-5.0) 02/20/17 05:30 Baso % (Auto) 0.2 % (0.0-3.0) 02/20/17 05:30 Gran # 5.18 (1.4-6.5) 02/20/17 05:30 Lymph # 2.2 (1.2-3.4) 02/20/17 05:30 [place] # 0.7 (0.1-0.6) H 02/20/17 05:30 Eos # 0.2 (0.0-0.7) 02/20/17 05:30 Baso # 0.02 K/mm3 (0.0-2.0) 02/20/17 05:30 PT 11.4 SECONDS (9.4-12.5) 02/17/17 23:04 INR 1.04 (0.93-1.08) 02/17/17 23:04 APTT 25.5 Seconds (25.1-36.5) 02/17/17 23:04 Sodium 139 mmol/L (132-148) 02/20/17 05:30 Potassium 4.2 mmol/L (3.6-5.0) 02/20/17 05:30 Chloride 105 mmol/L (98-107) 02/20/17 05:30 Carbon Dioxide 25 mmol/L (21-33) 02/20/17 05:30 Anion Gap 13 (10-20) 02/20/17 05:30 BUN 10 mg/dL (7-21) 02/20/17 05:30 Creatinine 0.9 mg/dl (0.8-1.5) 02/20/17 05:30 Est GFR ( Amer) > 60 02/20/17 05:30 Est GFR (Non-Af Amer) > 60 02/20/17 05:30 Random Glucose 113 mg/dL (70-110) H 02/20/17 05:30 Calcium 8.6 mg/dL (8.4-10.5) 02/20/17 05:30 Total Bilirubin 1.1 mg/dL (0.2-1.3) 02/20/17 05:30 AST 29 U/L (17-59) 02/20/17 05:30 ALT 26 U/L (7-56) 02/20/17 05:30 Alkaline Phosphatase 65 U/L (38-126) 02/20/17 05:30 Total Protein 6.9 g/dL (5.8-8.3) 02/20/17 05:30 Albumin 3.7 g/dL (3.0-4.8) 02/20/17 05:30 Globulin 3.3 gm/dL 02/20/17 05:30 Albumin/Globulin Ratio 1.1 (1.1-1.8) 02/20/17 05:30 Alcohol, Quantitative 191 mg/dL (0-10) H 02/18/17 00:40 Discharge Exam - Head Exam Head Exam: ATRAUMATIC, NORMOCEPHALIC Discharge Plan - Follow Up Plan Condition: FAIR Disposition: REHAB FACILITY/REHAB UNIT Instructions: Ankle Fracture (DC) Additional Instructions: 1. Patient to be discharged to TCU for further physical therapy. 2. Patient advised to return to emergency department for any new or worsening symptoms. Referrals: Gwyn Mcknight MD [Primary Care Provider] -
[2017-02-20 17:42] VITALS: BP 140/82; RESP 20; TEMP 98.3; O2SAT 95
[2017-02-20 19:05] VITALS: PULSE 95
[2017-02-20] MEDS: Sodium Chloride 0.9% 1,000 ML IV SCH (19:26)
== END 2017-02-20 21:54 | DRG 493 ==
LOC: ED 21:29 → ERH 23:55 → 5RNO 02-18 01:53 → 3RNO 02-18 15:09
PROVIDERS: ADMIT Hospitalist; ATTEND Internal Medicine
PROC: 0QSG35Z Reposition Right Tibia with External Fixation Device, Percutaneous Approach (ICD-10-PCS; 2017-02-18)
PROC: 0QSJ35Z Reposition Right Fibula with External Fixation Device, Percutaneous Approach (ICD-10-PCS; principal; 2017-02-18 10:42)
DX: S82.61XA Displaced fracture of lateral malleolus of right fibula, initial encounter for closed fracture (principal); K50.90 Crohn's disease, unspecified, without complications; S82.51XA Displaced fracture of medial malleolus of right tibia, initial encounter for closed fracture; S93.01XA Subluxation of right ankle joint, initial encounter; S93.04XA Dislocation of right ankle joint, initial encounter; J44.9 Chronic obstructive pulmonary disease, unspecified; F10.10 Alcohol abuse, uncomplicated; I10 Essential (primary) hypertension; R26.9 Unspecified abnormalities of gait and mobility; Y90.6 Blood alcohol level of 120-199 mg/100 ml; W01.0XXA Fall on same level from slipping, tripping and stumbling without subsequent striking against object, initial encounter; Y92.414 Local residential or business street as the place of occurrence of the external cause; Z88.5 Allergy status to narcotic agent; Z87.891 Personal history of nicotine dependence

== ENCOUNTER 2017-02-20 21:50 | Inpatient (IN) | payer OTHER ==
[2017-02-20] MEDS ORDERED: Sodium Chloride 0.9% 1,000 ML IV SCH (22:45)
[2017-02-20 23:11] VITALS: BMI 40.4
[2017-02-21] MEDS: Budesonide 0.25 mg/2 ml Inhal Susp UD IH SCH ×2 (03:25→10:51)
[2017-02-21] MEDS: Pantoprazole 40 mg EC Tab PO SCH (05:08)
--- NOTE | 2017-02-21 07:02 | CP.PCM.HP ---
<Clifford Horton - Last Filed: 02/21/17 16:20> History of Present Illness - History of Present Illness History of Present Illness: Patient is a 66 year old male with past medical history of COPD, HTN, and colitis who presents to the emergency department via EMS for evaluation and treatment of a fall and right ankle pain. The patient states that he was drinking alcohol (3 shots of hard liquor and 6 beers) which is greater than his normal regimen of drinking a couple of beers twice a week. Patient fell while trying to get out of the car. Denies LOC, head trauma, and dizziness. Admit to the localized right ankle pain. Sharp in nature. Originally 10/10 mildly improved after receiving toradol in ED. Patient subsequently had an external fixation done by Dr. Jeff. Patient was then transferred to TCU for further rehabilitation.Patient denies intractable headache, fever, chills, dizziness, blurry vision, ringing in the ears, chest pain, shortness of breath, abdominal pain, nausea, vomiting, diarrhea, constipation, and urinary symptoms. Past medical history: COPD, HTN, colitis Past social history: cholecystectomy, colectomy (8inches total), bilateral knee surgeries, cervical spine fusion (unsure of levels), tonsilectomy Allergies: Denies Family history: noncontributory Social History: social alcohol use, quit 2 years ago however smoked 1-1.5 pack per day for 40 years, denies illicit drug use Medications: Please see medication reconciliation Present on Admission - Present on Admission Any Indicators Present on Admission: No Review of Systems - Constitutional Constitutional: As Per HPI - EENT Eyes: As Per HPI Ears: As Per HPI Nose/Mouth/Throat: As Per HPI - Cardiovascular Cardiovascular: As Per HPI - Respiratory Respiratory: As Per HPI - Gastrointestinal Gastrointestinal: As Per HPI - Genitourinary Genitourinary: As Per HPI - Musculoskeletal Musculoskeletal: As Per HPI - Integumentary Integumentary: As Per HPI - Neurological Neurological: As Per HPI - Endocrine Endocrine: As Per HPI - Hematologic/Lymphatic Hematologic: As Per HPI Past Patient History - Infectious Disease Hx of Infectious Diseases: None - Tetanus Immunizations Tetanus Immunization: Unknown - Past Social History Smoking Status: Former Smoker - CARDIAC Hx Hypercholesterolemia: Yes Hx Hypertension: Yes - PULMONARY Hx Chronic Obstructive Pulmonary Disease (COPD): Yes - NEUROLOGICAL Hx Neurological Disorder: No - HEENT Hx HEENT Problems: No - RENAL Hx Chronic Kidney Disease: No - ENDOCRINE/METABOLIC Hx Endocrine Disorders: No - HEMATOLOGICAL/ONCOLOGICAL Hx Blood Disorders: No - INTEGUMENTARY Hx Dermatological Problems: No - MUSCULOSKELETAL/RHEUMATOLOGICAL Hx Arthritis: Yes Hx Falls: Yes (02/18 admission) Hx Fractures: Yes (right ankle) Other/Comment: s/p external fixation 02/17 - GASTROINTESTINAL Hx Gastrointestinal Disorders: Yes Hx Crohn's Disease: (colitis) Other/Comment: Colitis, - GENITOURINARY/GYNECOLOGICAL Hx Genitourinary Disorders: No - PSYCHIATRIC Hx Emotional Abuse: No Hx Physical Abuse: No - SURGICAL HISTORY Hx Surgeries: Yes (left knee) - ANESTHESIA Hx Anesthesia Reactions: No Hx Malignant Hyperthermia: No Meds Allergies/Adverse Reactions: Allergies Allergy/AdvReac Type Severity Reaction Status Date / Time codeine Allergy Severe ANAPHYLAXIS Verified 02/20/17 23:16 morphine Allergy Severe ANAPHYLAXIS Verified 02/20/17 23:16 Physical Exam - Head Exam Head Exam: ATRAUMATIC, NORMAL INSPECTION, NORMOCEPHALIC - Eye Exam Eye Exam: EOMI, Normal appearance, PERRL. absent: Periorbital tenderness Pupil Exam: NORMAL ACCOMODATION, PERRL. absent: Mydriatic - ENT Exam ENT Exam: Mucous Membranes Moist, Normal Oropharynx - Neck Exam Neck exam: Positive for: Normal Inspection. Negative for: Meningismus - Respiratory Exam Respiratory Exam: Clear to Auscultation Bilateral, NORMAL BREATHING PATTERN. absent: Chest Wall Tenderness, Prolonged Expiratory Phase, Respiratory Distress - Cardiovascular Exam Cardiovascular Exam: REGULAR RHYTHM, +S1, +S2 - GI/Abdominal Exam GI & Abdominal Exam: Normal Bowel Sounds, Soft. absent: Distended, Hypoactive Bowel Sounds, Organomegaly, Tenderness - Extremities Exam Additional comments: right ankle has external fixator present and wrapped in a cast. - Back Exam Back exam: NORMAL INSPECTION. absent: CVA tenderness (L), CVA tenderness (R), paraspinal tenderness - Neurological Exam Neurological exam: Alert, CN II-XII Intact, Oriented x3 - Psychiatric Exam Psychiatric exam: Normal Affect, Normal Mood - Skin Skin Exam: Dry, Intact Results - Vital Signs Recent Vital Signs: Last Vital Signs Temp 98.2 F 02/20/17 22:53 Pulse 83 02/20/17 22:53 Resp 22 02/20/17 22:53 BP 143/70 02/20/17 22:53 Pulse Ox - Labs Result Diagrams: 02/21/17 06:00 02/21/17 06:00 Assessment & Plan - Assessment and Plan (Free Text) Assessment: Patient is a 66 year old male with past medical history of COPD, HTN, and colitis who s/p external fixation of distal tibia/ fibula POD day #1. Plan: Mechanical Fall (s/p external fixation reducing fractures-dislocation of distal tibia/fibula) -Patient POD #1. Swelling is decreasing upon examination. Pending resolution of swelling patient is expected to have a formal open reduction and internal fixation - Orthopedic surgery re-consulted. Will f/u with rec's - Continue Toradol for pain management. -Fluids D/c'ed. Patient tolerating food and drink PO with no nausea or vomiting. - Further pain control with tylenol as patient is allergic to morphine/codeine and NSAIDs are contraindicated as patient may need operative correction of the right lower extremity Chronic COPD - duobnebs q4 prn -encouraged patient to use incentive spirometer while healing. Advised patient to remain continue exercises in the bed while in TCU. Potential ETOH Withdrawal - no ETOH level or ordered by ED- will order ETOH level and UDS - CIWA - high risk fall precautions - continue ativan 1mg q4 prn for withdrawl symptoms Hx of Htn - confirm home medications dosages prior to administering - hydralazine 10mg IV q6 prn SBP > 180, holding parameters- do not administer if HR is > 100 bpm Prophylaxis - DVT ppx- Lovenox - GI ppx- Protonix <Urban Mathis - Last Filed: 02/21/17 18:37> Results - Vital Signs Recent Vital Signs: Last Vital Signs Temp 98.2 F 02/21/17 10:00 Pulse 74 02/21/17 10:00 Resp 18 02/21/17 10:00 BP 130/74 02/21/17 11:01 Pulse Ox 96 02/21/17 10:00 - Labs Result Diagrams: 02/21/17 06:00 02/21/17 06:00 Labs: Laboratory Results - last 24 hr 02/21/17 02/21/17 06:00 06:00 WBC 7.8 RBC 4.23 Hgb 13.1 L Hct 39.3 L MCV 92.9 MCH 31.0 MCHC 33.3 RDW 12.8 Plt Count 215 MPV 9.8 Gran % 64.2 Lymph % (Auto) 24.8 [place] % (Auto) 7.5 H Eos % (Auto) 3.2 Baso % (Auto) 0.3 Gran # 4.98 Lymph # 1.9 [place] # 0.6 Eos # 0.3 Baso # 0.02 Sodium 139 Potassium 4.0 Chloride 105 Carbon Dioxide 25 Anion Gap 13 BUN 11 Creatinine 0.9 Est GFR ( Amer) > 60 Est GFR (Non-Af Amer) > 60 Random Glucose 103 Calcium 9.0 Total Bilirubin 1.5 H AST 44 ALT 43 Alkaline Phosphatase 70 Total Protein 6.9 Albumin 3.7 Globulin 3.1 Albumin/Globulin Ratio 1.2 Attending/Attestation - Attestation I have personally seen and examined this patient.: Yes I have fully participated in the care of the patient.: Yes I have reviewed all pertinent clinical information: Yes Notes (Text): 02/21/17 18:33 attending note; Patient seen and examined with resident in TCU. Patient is a 66 year old male with past medical history of COPD, hypertension and colitis is admitted after right ankle fracture. Status post external fixator placement by orthopedics . Currently In TCU getting physical therapy. will follow-up with orthopedics for further plan. upon discharge the patient will follow-up with PMD Dr. Mcknight. 02/21/17 18:36
[2017-02-21 07:09] LABS: BASO # 0.02 K/mm3 (0.0-2.0); BASO % 0.3 % (0.0-3.0); EOS # 0.3 (0.0-0.7); EOS % 3.2 % (1.5-5.0); GRAN # 4.98 (1.4-6.5); GRAN % 64.2 % (50.0-68.0); HEMATOCRIT 39.3 % (42.0-52.0); LYMPH # 1.9 (1.2-3.4); LYMPH % 24.8 % (22.0-35.0); MEAN CELL VOLUME 92.9 fl (80.0-105.0); MEAN CORPUSCULAR HGB CONC 33.3 g/dl (31.0-37.0); MEAN PLATELET VOLUME 9.8 fl (7.0-11.0); MONO # 0.6 (0.1-0.6); MONO % 7.5 % (1.0-6.0); RED CELL DISTRIBUTION WIDTH 12.8 % (11.5-14.5); WHITE BLOOD COUNT 7.8 10^3/ul (4.5-11.0)
[2017-02-21 07:49] LABS: SODIUM 139 mmol/L (132-148)
[2017-02-21 07:53] LABS: ALB/GLOB RATIO 1.2 (1.1-1.8); ALKALINE PHOSPHATASE 70 U/L (38-126); ALT/SGPT 43 U/L (7-56); AST/SGOT 44 U/L (17-59); BILIRUBIN,TOTAL 1.5 mg/dL (0.2-1.3); BLOOD UREA NITROGEN 11 mg/dL (7-21); CARBON DIOXIDE 25 mmol/L (21-33); CHLORIDE 105 mmol/L (98-107); GFR AFRICAN-AMERICAN > 60; GLUCOSE,RANDOM 103 mg/dL (70-110); TOTAL PROTEIN 6.9 g/dL (5.8-8.3)
[2017-02-21] MEDS: Enoxaparin 30 mg Syringe SC SCH (11:00)
[2017-02-21] MEDS: Aspirin 325 mg EC Tablets PO SCH (11:00)
[2017-02-21] MEDS: MESALAMINE PO SCH (11:01)
[2017-02-21] MEDS: POLYETHYLENE GLYCOL 3350 17 GM/Dose PACKET PO SCH (11:03)
[2017-02-21] MEDS: Tiotropium 18 mcg Cap For Inhalation IH SCH (11:11)
--- NOTE | 2017-02-21 18:51 | CON ---
DATE: HISTORY OF PRESENT ILLNESS: The patient is a 66-year-old that was transferred from the floor with right ankle fracture that was put an external fixator on 02/18/2017. He is in TCU right now, waiting to have the swelling go down and then we could perform an open reduction and internal fixation of the right ankle fracture. There was comminuted bimalleolar that was initially dislocated, but is being held by the external fixator. We will change dressing tomorrow, see how the skin looks and make a determination when we can do the open reduction and internal fixation, hopefully in beginning of next week. In the meantime, he is to ambulate with the walker and no weightbearing on that the right leg. Naga Jeff DO
[2017-02-22] MEDS: Pantoprazole 40 mg EC Tab PO SCH (06:45)
[2017-02-22] MEDS: Aspirin 325 mg EC Tablets PO SCH (08:24)
[2017-02-22] MEDS: Enoxaparin 30 mg Syringe SC SCH (09:46)
[2017-02-22] MEDS: Tiotropium 18 mcg Cap For Inhalation IH SCH (09:47)
[2017-02-22] MEDS: MESALAMINE PO SCH (09:51)
[2017-02-22] MEDS: POLYETHYLENE GLYCOL 3350 17 GM/Dose PACKET PO SCH (09:55)
[2017-02-22] MEDS: Budesonide 0.25 mg/2 ml Inhal Susp UD IH SCH (10:43)
[2017-02-22] MEDS: Albuterol-Ipratrop 3 mg / 0.5 (3 ml) UD IH PRN ×2 (10:43→19:32)
--- NOTE | 2017-02-22 19:28 | PN ---
DATE: 02/22/2017 SUBJECTIVE: He has a comminuted displaced bimalleolar fracture of his right leg that was too swollen to do a primary ORIF when he came in on 02/17/2017, so he had a transarticular external fixator put in till the swelling subsides, and today I see him on TCU for I took the dressing down to check everything, his wounds are nice and dry and all the pin sites. He has overall good alignment of that fracture and the CAT scan helping me to decide out how to put his internal fixation plates and screws in, which we planned to do on 28/02/2017 at 07:30 in the morning. In the meantime, pin sites are so clean that we could let him take a shower and discontinue his Lovenox and just put him on aspirin for DVT prophylaxis as he has bleed through on his left leg from scratching. FINAL DIAGNOSIS: Comminuted displaced bimalleolar fracture of right ankle with external fixator that we will plan on doing open reduction and internal fixation because the swelling is down on 28/02/2017, and we will stop the Lovenox and put him on aspirin for deep venous thrombosis prophylaxis. Naga Jeff DO MTDD
[2017-02-23] MEDS: Pantoprazole 40 mg EC Tab PO SCH (05:03)
[2017-02-23] MEDS: Budesonide 0.25 mg/2 ml Inhal Susp UD IH SCH ×2 (07:19→19:48)
[2017-02-23 07:46] LABS: BASO # 0.02 K/mm3 (0.0-2.0); BASO % 0.2 % (0.0-3.0); EOS # 0.2 (0.0-0.7); EOS % 2.1 % (1.5-5.0); GRAN # 7.31 (1.4-6.5); GRAN % 66.5 % (50.0-68.0); HEMATOCRIT 40.7 % (42.0-52.0); LYMPH # 2.7 (1.2-3.4); LYMPH % 24.3 % (22.0-35.0); MEAN CELL VOLUME 93.3 fl (80.0-105.0); MEAN CORPUSCULAR HEMOGLOBIN 31.4 pg (25.0-35.0); MEAN CORPUSCULAR HGB CONC 33.7 g/dl (31.0-37.0); MEAN PLATELET VOLUME 9.4 fl (7.0-11.0); MONO # 0.8 (0.1-0.6); MONO % 6.9 % (1.0-6.0); RED CELL DISTRIBUTION WIDTH 12.9 % (11.5-14.5)
[2017-02-23 08:24] LABS: ALB/GLOB RATIO 1.2 (1.1-1.8); ALKALINE PHOSPHATASE 76 U/L (38-126); ALT/SGPT 63 U/L (7-56); AST/SGOT 58 U/L (17-59); BILIRUBIN,TOTAL 1.8 mg/dL (0.2-1.3); BLOOD UREA NITROGEN 28 mg/dL (7-21); CALCIUM 9.4 mg/dL (8.4-10.5); CARBON DIOXIDE 25 mmol/L (21-33); CHLORIDE 107 mmol/L (98-107); GFR AFRICAN-AMERICAN > 60; GLUCOSE,RANDOM 115 mg/dL (70-110); POTASSIUM 4.1 mmol/L (3.6-5.0); SODIUM 143 mmol/L (132-148); TOTAL PROTEIN 7.6 g/dL (5.8-8.3)
[2017-02-23] MEDS: Aspirin 325 mg EC Tablets PO SCH (08:56)
[2017-02-23] MEDS: POLYETHYLENE GLYCOL 3350 17 GM/Dose PACKET PO SCH (10:28)
[2017-02-23] MEDS: Tiotropium 18 mcg Cap For Inhalation IH SCH (10:29)
--- NOTE | 2017-02-23 11:54 | CP.PCM.PN ---
<Clifford Horton - Last Filed: 02/24/17 16:04> Subjective - Date & Time of Evaluation Date of Evaluation: 02/23/17 Time of Evaluation: 06:53 - Subjective Subjective: Patient seen and examined at bedside. Per nursing no acute events occurred overnight .The patient denies any nausea, vomiting, fevers, chills, chest pain, shortness of breath, headache, syncopal episodes, or any other complaints. Objective - Vital Signs/Intake and Output Vital Signs (last 24 hours): Temp Pulse Resp BP Pulse Ox 97.4 F L 88 18 117/78 95 02/23/17 11:21 02/23/17 11:21 02/23/17 11:21 02/23/17 11:21 02/23/17 11:21 - Medications Medications: Current Medications Acetaminophen (Tylenol 325mg Tab) 650 mg PO Q4H PRN PRN Reason: Pain, Mild (1-3) Albuterol/Ipratropium (Duoneb 3 Mg/0.5 Mg (3 Ml) Ud) 3 ml IH [id number] PRN PRN Reason: Shortness of Breath Last Admin: 02/22/17 19:32 Dose: 3 ml Amlodipine Besylate (Norvasc) 5 mg PO DAILY MOE PRN Reason: Protocol Last Admin: 02/23/17 10:29 Dose: 5 mg Arformoterol Tartrate (Brovana) 5 mcg IH BID MOE Aspirin (Ecotrin) 325 mg PO 0800 [facility] Last Admin: 02/23/17 08:56 Dose: 325 mg Budesonide (Pulmicort Respules) 0.25 mg IH Q12H [facility] Last Admin: 02/23/17 07:19 Dose: 0.25 mg Docusate Sodium (Colace) 100 mg PO TID MOE PRN Reason: Protocol Last Admin: 02/23/17 10:27 Dose: 100 mg Hydralazine HCl (Apresoline) 10 mg IVP Q6 PRN; Protocol PRN Reason: Systolic Blood Pressure Ibuprofen (Motrin Tab) 600 mg PO Q6 PRN; Protocol PRN Reason: Pain, moderate (4-7) Ketorolac Tromethamine (Toradol) 15 mg IVP Q6 PRN PRN Reason: Pain, severe (8-10) Last Admin: 02/23/17 05:03 Dose: 15 mg Lorazepam (Ativan) 1 mg IVP Q4 PRN; Protocol PRN Reason: Anxiety Losartan Potassium (Cozaar) 100 mg PO DAILY MOE PRN Reason: Protocol Last Admin: 02/23/17 10:28 Dose: 100 mg Mesalamine [Apriso] (4 Tab (Home Med)) 4 tab PO DAILY [facility] Last Admin: 02/22/17 09:51 Dose: Not Given Pantoprazole Sodium (Protonix Ec Tab) 40 mg PO 0600 MOE PRN Reason: Protocol Last Admin: 02/23/17 05:03 Dose: 40 mg Polyethylene Glycol (Miralax) 17 gm PO DAILY MOE PRN Reason: Protocol Last Admin: 02/23/17 10:28 Dose: 17 gm Tiotropium [place] (Spiriva) 18 mcg IH DAILY MOE PRN Reason: Protocol Last Admin: 02/23/17 10:29 Dose: 18 mcg Tramadol HCl (Ultram) 50 mg PO TID PRN PRN Reason: Pain, severe (8-10) - Labs Labs: 02/23/17 07:30 02/23/17 07:30 - Head Exam Head Exam: ATRAUMATIC, NORMAL INSPECTION, NORMOCEPHALIC - Eye Exam Eye Exam: EOMI, Normal appearance, PERRL. absent: Periorbital tenderness Pupil Exam: NORMAL ACCOMODATION, PERRL. absent: Irregular, Unequal - ENT Exam ENT Exam: Mucous Membranes Moist, Normal Exam, Normal Oropharynx - Respiratory Exam Respiratory Exam: Clear to Ausculation Bilateral, NORMAL BREATHING PATTERN. absent: Chest Wall Tenderness, Prolonged Expiratory Phase, Respiratory Distress - Cardiovascular Exam Cardiovascular Exam: REGULAR RHYTHM, RRR, +S1, +S2. absent: Gallop, Rubs - GI/Abdominal Exam GI & Abdominal Exam: Soft, Normal Bowel Sounds. absent: Rigid, Hyperactive Bowel Sounds - Extremities Exam Extremities Exam: absent: Joint Swelling, Pedal Edema, Tenderness - Back Exam Back Exam: NORMAL INSPECTION. absent: CVA tenderness (L), CVA tenderness (R), paraspinal tenderness - Neurological Exam Neurological Exam: Alert, Awake, CN II-XII Intact, Oriented x3 - Psychiatric Exam Psychiatric exam: Normal Affect, Normal Mood. absent: Anxious, Depressed - Skin Skin Exam: Dry, Intact Assessment and Plan - Assessment and Plan (Free Text) Assessment: Patient is a 66 year old male with past medical history of COPD, HTN, and colitis who s/p external fixation of distal tibia/ fibula POD day #1. Plan: Mechanical Fall (s/p external fixation reducing fractures-dislocation of distal tibia/fibula) -Patient POD #3. Swelling is decreasing upon examination. Patient expected to have surgery done on February 28. - Orthopedic surgery re-consulted. Recommendations appreciated. - Continue Toradol for pain management. - Further pain control with tylenol as patient is allergic to morphine/codeine and NSAIDs are contraindicated as patient may need operative correction of the right lower extremity Chronic COPD -home medication restarted. -Continue duobnebs q4 prn -encouraged patient to use incentive spirometer while healing. Advised patient to remain continue exercises in the bed while in TCU. Potential ETOH Withdrawal - no ETOH level or ordered by ED- will order ETOH level and UDS - CIWA - high risk fall precautions - continue ativan 1mg q4 prn for withdrawl symptoms Hx of Htn - confirm home medications dosages prior to administering - hydralazine 10mg IV q6 prn SBP > 180, holding parameters- do not administer if HR is > 100 bpm Prophylaxis - DVT ppx- Lovenox - GI ppx- Protonix <Rangasamy,Ajantha - Last Filed: 02/24/17 17:09> Objective - Vital Signs/Intake and Output Vital Signs (last 24 hours): Temp Pulse Resp BP Pulse Ox 98.8 F 89 18 108/66 98 02/24/17 16:06 02/24/17 16:06 02/24/17 16:06 02/24/17 16:06 02/24/17 16:06 - Medications Medications: Current Medications Acetaminophen (Tylenol 325mg Tab) 650 mg PO Q4H PRN PRN Reason: Pain, Mild (1-3) Albuterol/Ipratropium (Duoneb 3 Mg/0.5 Mg (3 Ml) Ud) 3 ml IH [id number] PRN PRN Reason: Shortness of Breath Last Admin: 02/22/17 19:32 Dose: 3 ml Amlodipine Besylate (Norvasc) 5 mg PO DAILY MOE PRN Reason: Protocol Last Admin: 02/24/17 09:36 Dose: 5 mg Arformoterol Tartrate (Brovana) 5 mcg IH BID MOE Last Admin: 02/24/17 11:00 Dose: 5 mcg Aspirin (Ecotrin) 325 mg PO 0800 [facility] Last Admin: 02/24/17 08:35 Dose: 325 mg Budesonide (Pulmicort Respules) 0.25 mg IH Q12H [facility] Last Admin: 02/24/17 11:00 Dose: 0.25 mg Docusate Sodium (Colace) 100 mg PO TID MOE PRN Reason: Protocol Last Admin: 02/24/17 13:38 Dose: Not Given Hydralazine HCl (Apresoline) 10 mg IVP Q6 PRN; Protocol PRN Reason: Systolic Blood Pressure Ibuprofen (Motrin Tab) 600 mg PO Q6 PRN; Protocol PRN Reason: Pain, moderate (4-7) Ketorolac Tromethamine (Toradol) 15 mg IVP Q6 PRN PRN Reason: Pain, severe (8-10) Last Admin: 02/24/17 16:57 Dose: 15 mg Lorazepam (Ativan) 1 mg IVP Q4 PRN; Protocol PRN Reason: Anxiety Losartan Potassium (Cozaar) 100 mg PO DAILY [facility] PRN Reason: Protocol Last Admin: 02/24/17 09:34 Dose: 100 mg Mesalamine [Apriso] (4 Tab (Home Med)) 4 tab PO DAILY [facility] Last Admin: 02/24/17 09:37 Dose: Not Given Pantoprazole Sodium (Protonix Ec Tab) 40 mg PO 0600 [facility] PRN Reason: Protocol Last Admin: 02/24/17 05:48 Dose: 40 mg Polyethylene Glycol (Miralax) 17 gm PO DAILY MOE PRN Reason: Protocol Last Admin: 02/24/17 09:40 Dose: Not Given Tiotropium [place] (Spiriva) 18 mcg IH DAILY [facility] PRN Reason: Protocol Last Admin: 02/24/17 09:36 Dose: 18 mcg Tramadol HCl (Ultram) 50 mg PO TID PRN PRN Reason: Pain, severe (8-10) - Labs Labs: 02/23/17 07:30 02/23/17 07:30 Attending/Attestation - Attestation I have personally seen and examined this patient.: Yes I have fully participated in the care of the patient.: Yes I have reviewed all pertinent clinical information, including history, physical exam and plan: Yes Notes (Text): 02/24/17 17:07 attending note; Patient seen and examined with resident in TCU. Patient is a 66 year old male with past medical history of COPD, hypertension and colitis is admitted after right ankle fracture. Status post external fixator placement by orthopedics . plan for internal fixation surgery next Monday. Patient might need rehabilitation after surgery. Currently In TCU getting physical therapy. upon discharge the patient will follow-up with PMD Dr. Mcknight.
[2017-02-23] MEDS: Arformoterol 15 mcg/2 ml Inh Sol IH SCH ×2 (14:34→19:48)
[2017-02-23] MEDS: MESALAMINE PO SCH (14:35)
[2017-02-24] MEDS: Pantoprazole 40 mg EC Tab PO SCH (05:48)
[2017-02-24] MEDS: Aspirin 325 mg EC Tablets PO SCH (08:35)
[2017-02-24] MEDS: POLYETHYLENE GLYCOL 3350 17 GM/Dose PACKET PO SCH ×2 (09:35→09:40)
[2017-02-24] MEDS: Tiotropium 18 mcg Cap For Inhalation IH SCH (09:36)
[2017-02-24] MEDS: MESALAMINE PO SCH (09:37)
[2017-02-24] MEDS: Arformoterol 15 mcg/2 ml Inh Sol IH SCH ×2 (11:00→20:49)
[2017-02-24] MEDS: Budesonide 0.25 mg/2 ml Inhal Susp UD IH SCH ×3 (11:00→21:34)
[2017-02-25] MEDS: Pantoprazole 40 mg EC Tab PO SCH (05:37)
[2017-02-25] MEDS: Arformoterol 15 mcg/2 ml Inh Sol IH SCH ×3 (08:00→20:11)
[2017-02-25] MEDS: Budesonide 0.25 mg/2 ml Inhal Susp UD IH SCH ×3 (08:00→20:16)
[2017-02-25] MEDS: Aspirin 325 mg EC Tablets PO SCH (08:12)
[2017-02-25] MEDS: Tiotropium 18 mcg Cap For Inhalation IH SCH (10:43)
[2017-02-25] MEDS: POLYETHYLENE GLYCOL 3350 17 GM/Dose PACKET PO SCH (10:44)
[2017-02-25] MEDS: MESALAMINE PO SCH (10:45)
--- NOTE | 2017-02-25 15:27 | CARD ---
APPROVED REPORT EKG Measurement Heart [id number] <Conclusion> Normal sinus rhythm Normal ECG
--- NOTE | 2017-02-25 22:32 | CP.PCM.PN ---
<Jacob Dumas Jamilahlebron - Last Filed: 02/25/17 22:42> Subjective - Date & Time of Evaluation Date of Evaluation: 02/25/17 Time of Evaluation: 22:29 - Subjective Subjective: Medicine progress note - Jacob Dumas DO, Tool Tender Patient seen and examined at bedside. Per nursing no acute events overnight. The patient himself denies any nausea, vomiting, diarrhea, fevers, chills, chest pain, shortness of breath, but does state that he no longer wants to be poked for labs. Patient was told, however, that his liver enzymes were elevated and a couple of other labs, and that he would have to allow labs in the morning for that reason tomorrow. Patient expressed understanding. Objective - Vital Signs/Intake and Output Vital Signs (last 24 hours): Temp Pulse Resp BP Pulse Ox 97.9 F 99 H 16 119/81 96 02/25/17 06:00 02/25/17 10:44 02/25/17 06:00 02/25/17 10:44 02/25/17 06:00 Intake and Output: 02/25/17 02/26/17 18:59 06:59 Intake Total 360 Balance 360 - Medications Medications: Current Medications Acetaminophen (Tylenol 325mg Tab) 650 mg PO Q4H PRN PRN Reason: Pain, Mild (1-3) Albuterol/Ipratropium (Duoneb 3 Mg/0.5 Mg (3 Ml) Ud) 3 ml IH [id number] PRN PRN Reason: Shortness of Breath Last Admin: 02/22/17 19:32 Dose: 3 ml Amlodipine Besylate (Norvasc) 5 mg PO DAILY MOE PRN Reason: Protocol Last Admin: 02/25/17 10:44 Dose: 5 mg Arformoterol Tartrate (Brovana) 5 mcg IH BID OME Last Admin: 02/25/17 20:11 Dose: 5 mcg Aspirin (Ecotrin) 325 mg PO 0800 MOE Last Admin: 02/25/17 08:12 Dose: 325 mg Budesonide (Pulmicort Respules) 0.25 mg IH Q12H MOE Last Admin: 02/25/17 20:16 Dose: 0.25 mg Docusate Sodium (Colace) 100 mg PO TID MOE PRN Reason: Protocol Last Admin: 02/25/17 17:16 Dose: Not Given Ibuprofen (Motrin Tab) 600 mg PO Q6 PRN; Protocol PRN Reason: Pain, moderate (4-7) Ketorolac Tromethamine (Toradol) 15 mg IVP Q6 PRN PRN Reason: moderate pain ( 8-10) Last Admin: 02/25/17 22:20 Dose: 15 mg Losartan Potassium (Cozaar) 100 mg PO DAILY MOE PRN Reason: Protocol Last Admin: 02/25/17 10:44 Dose: 100 mg Mesalamine [Apriso] (4 Tab (Home Med)) 4 tab PO DAILY MOE Last Admin: 02/25/17 10:45 Dose: Not Given Pantoprazole Sodium (Protonix Ec Tab) 40 mg PO 0600 MOE PRN Reason: Protocol Last Admin: 02/25/17 05:37 Dose: 40 mg Polyethylene Glycol (Miralax) 17 gm PO DAILY MOE PRN Reason: Protocol Last Admin: 02/25/17 10:44 Dose: Not Given Tiotropium [place] (Spiriva) 18 mcg IH DAILY MOE PRN Reason: Protocol Last Admin: 02/25/17 10:43 Dose: 18 mcg Tramadol HCl (Ultram) 50 mg PO TID PRN PRN Reason: Pain, severe (8-10) - Labs Labs: 02/23/17 07:30 02/23/17 07:30 - Constitutional Appears: Well - Head Exam Head Exam: ATRAUMATIC, NORMAL INSPECTION, NORMOCEPHALIC - Eye Exam Eye Exam: EOMI, Normal appearance, PERRL Pupil Exam: NORMAL ACCOMODATION, PERRL - ENT Exam ENT Exam: Mucous Membranes Moist, Normal Exam, Normal External Ear Exam - Neck Exam Neck Exam: Full ROM, Normal Inspection. absent: Lymphadenopathy - Respiratory Exam Respiratory Exam: Clear to Ausculation Bilateral, NORMAL BREATHING PATTERN. absent: Rales, Rhonchi, Wheezes, Respiratory Distress - Cardiovascular Exam Cardiovascular Exam: REGULAR RHYTHM, +S1, +S2. absent: Tachycardia, Murmur - GI/Abdominal Exam GI & Abdominal Exam: Soft, Normal Bowel Sounds. absent: Tenderness, Rebound - Extremities Exam Extremities Exam: Normal Capillary Refill, Normal Inspection. absent: Calf Tenderness, Joint Swelling, Pedal Edema Additional comments: Patient has external fixator in place - Back Exam Back Exam: Full ROM, NORMAL INSPECTION. absent: CVA tenderness (L), CVA tenderness (R) - Neurological Exam Neurological Exam: Alert, Awake, CN II-XII Intact, Normal Gait, Oriented x3 - Psychiatric Exam Psychiatric exam: Normal Affect, Normal Mood - Skin Skin Exam: Dry, Intact, Normal Color, Warm Assessment and Plan - Assessment and Plan (Free Text) Assessment: A/P 66 year old male with past medical history of COPD, HTN, and colitis who s/p external fixation of distal tibia/ fibula POD day #7. Mechanical Fall (s/p external fixation reducing fractures-dislocation of distal tibia/fibula) - Patient POD #7. Swelling is decreasing upon examination. Patient expected to have surgery done on February 28. - Orthopedic surgery re-consulted. Recommendations appreciated. - Continue Toradol for pain management. - Further pain control with tylenol as patient is allergic to morphine/codeine and NSAIDs are contraindicated as patient may need operative correction of the right lower extremity Chronic COPD -home medication restarted: Tiotropium, Brovana, Pulmicort Respules -Continue duobnebs q4 prn -encouraged patient to use incentive spirometer while healing. Advised patient to remain continue exercises in the bed while in TCU. Potential ETOH Withdrawal: No longer necessary Hypertension - Amlodipine 5 mg PO daily - Cozaar 100 mg PO Prophylaxis: DVT - ASA; GI - Protonix <Hayden Zee - Last Filed: 02/25/17 23:22> Objective - Vital Signs/Intake and Output Vital Signs (last 24 hours): Temp Pulse Resp BP Pulse Ox 97.9 F 99 H 16 119/81 96 02/25/17 06:00 02/25/17 10:44 02/25/17 06:00 02/25/17 10:44 02/25/17 06:00 Intake and Output: 02/25/17 02/26/17 18:59 06:59 Intake Total 360 Balance 360 - Medications Medications: Current Medications Acetaminophen (Tylenol 325mg Tab) 650 mg PO Q4H PRN PRN Reason: Pain, Mild (1-3) Albuterol/Ipratropium (Duoneb 3 Mg/0.5 Mg (3 Ml) Ud) 3 ml IH [id number] PRN PRN Reason: Shortness of Breath Last Admin: 12/13/17 19:32 Dose: 3 ml Amlodipine Besylate (Norvasc) 5 mg PO DAILY MOE PRN Reason: Protocol Last Admin: 02/25/17 10:44 Dose: 5 mg Arformoterol Tartrate (Brovana) 5 mcg IH BID [facility] Last Admin: 02/25/17 20:11 Dose: 5 mcg Aspirin (Ecotrin) 325 mg PO 0800 MOE Last Admin: 02/25/17 08:12 Dose: 325 mg Budesonide (Pulmicort Respules) 0.25 mg IH Q12H [facility] Last Admin: 02/25/17 20:16 Dose: 0.25 mg Docusate Sodium (Colace) 100 mg PO TID MOE PRN Reason: Protocol Last Admin: 02/25/17 17:16 Dose: Not Given Ibuprofen (Motrin Tab) 600 mg PO Q6 PRN; Protocol PRN Reason: Pain, moderate (4-7) Ketorolac Tromethamine (Toradol) 15 mg IVP Q6 PRN PRN Reason: moderate pain ( 8-10) Last Admin: 02/25/17 22:20 Dose: 15 mg Losartan Potassium (Cozaar) 100 mg PO DAILY [facility] PRN Reason: Protocol Last Admin: 02/25/17 10:44 Dose: 100 mg Mesalamine [Apriso] (4 Tab (Home Med)) 4 tab PO DAILY [facility] Last Admin: 02/25/17 10:45 Dose: Not Given Pantoprazole Sodium (Protonix Ec Tab) 40 mg PO 0600 MOE PRN Reason: Protocol Last Admin: 02/25/17 05:37 Dose: 40 mg Polyethylene Glycol (Miralax) 17 gm PO DAILY MOE PRN Reason: Protocol Last Admin: 02/25/17 10:44 Dose: Not Given Tiotropium [place] (Spiriva) 18 mcg IH DAILY [facility] PRN Reason: Protocol Last Admin: 02/25/17 10:43 Dose: 18 mcg Tramadol HCl (Ultram) 50 mg PO TID PRN PRN Reason: Pain, severe (8-10) - Labs Labs: 02/23/17 07:30 02/23/17 07:30 Attending/Attestation - Attestation I have personally seen and examined this patient.: Yes I have fully participated in the care of the patient.: Yes I have reviewed all pertinent clinical information, including history, physical exam and plan: Yes
[2017-02-26] MEDS: Pantoprazole 40 mg EC Tab PO SCH (05:15)
[2017-02-26] MEDS: Arformoterol 15 mcg/2 ml Inh Sol IH SCH ×2 (07:34→19:34)
[2017-02-26] MEDS: Budesonide 0.25 mg/2 ml Inhal Susp UD IH SCH ×2 (07:35→19:37)
[2017-02-26] MEDS: Aspirin 325 mg EC Tablets PO SCH (08:06)
[2017-02-26 10:12] LABS: BASO # 0.02 K/mm3 (0.0-2.0); BASO % 0.2 % (0.0-3.0); EOS # 0.3 (0.0-0.7); EOS % 3.1 % (1.5-5.0); GRAN # 5.47 (1.4-6.5); GRAN % 61.5 % (50.0-68.0); HEMATOCRIT 39.6 % (42.0-52.0); LYMPH # 2.4 (1.2-3.4); LYMPH % 27.4 % (22.0-35.0); MEAN CELL VOLUME 93.6 fl (80.0-105.0); MEAN CORPUSCULAR HEMOGLOBIN 30.5 pg (25.0-35.0); MEAN CORPUSCULAR HGB CONC 32.6 g/dl (31.0-37.0); MEAN PLATELET VOLUME 10.1 fl (7.0-11.0); MONO # 0.7 (0.1-0.6); MONO % 7.8 % (1.0-6.0); WHITE BLOOD COUNT 8.9 10^3/ul (4.5-11.0)
[2017-02-26 10:18] LABS: ALB/GLOB RATIO 1.1 (1.1-1.8); ALKALINE PHOSPHATASE 74 U/L (38-126); ALT/SGPT 42 U/L (7-56); AST/SGOT 27 U/L (17-59); BILIRUBIN,TOTAL 1.1 mg/dL (0.2-1.3); BLOOD UREA NITROGEN 19 mg/dL (7-21); CALCIUM 9.1 mg/dL (8.4-10.5); CARBON DIOXIDE 22 mmol/L (21-33); CHLORIDE 106 mmol/L (98-107); GFR AFRICAN-AMERICAN > 60; GLUCOSE,RANDOM 113 mg/dL (70-110); POTASSIUM 4.1 mmol/L (3.6-5.0); SODIUM 140 mmol/L (132-148)
[2017-02-26] MEDS: MESALAMINE PO SCH (10:32)
[2017-02-26] MEDS: POLYETHYLENE GLYCOL 3350 17 GM/Dose PACKET PO SCH (10:33)
[2017-02-26] MEDS: Tiotropium 18 mcg Cap For Inhalation IH SCH (10:33)
[2017-02-27] MEDS: Pantoprazole 40 mg EC Tab PO SCH (05:23)
[2017-02-27 06:33] LABS: BASO # 0.02 K/mm3 (0.0-2.0); BASO % 0.3 % (0.0-3.0); EOS # 0.2 (0.0-0.7); GRAN # 4.95 (1.4-6.5); GRAN % 62.7 % (50.0-68.0); HEMATOCRIT 39.9 % (42.0-52.0); LYMPH % 25.5 % (22.0-35.0); MEAN CELL VOLUME 93.4 fl (80.0-105.0); MEAN CORPUSCULAR HEMOGLOBIN 30.7 pg (25.0-35.0); MEAN CORPUSCULAR HGB CONC 32.8 g/dl (31.0-37.0); MONO # 0.7 (0.1-0.6); MONO % 8.5 % (1.0-6.0); RED CELL DISTRIBUTION WIDTH 12.8 % (11.5-14.5); WHITE BLOOD COUNT 7.9 10^3/ul (4.5-11.0)
[2017-02-27 07:01] LABS: INR 1.1 (0.93-1.08); PARTIAL THROMBOPLASTIN TIME 25.1 Seconds (25.1-36.5)
[2017-02-27 07:13] LABS: ALB/GLOB RATIO 1.1 (1.1-1.8); ALKALINE PHOSPHATASE 70 U/L (38-126); ALT/SGPT 39 U/L (7-56); AST/SGOT 20 U/L (17-59); BILIRUBIN,TOTAL 1.2 mg/dL (0.2-1.3); BLOOD UREA NITROGEN 20 mg/dL (7-21); CALCIUM 9.3 mg/dL (8.4-10.5); CARBON DIOXIDE 24 mmol/L (21-33); CHLORIDE 107 mmol/L (98-107); GFR AFRICAN-AMERICAN > 60; GLUCOSE,RANDOM 105 mg/dL (70-110); POTASSIUM 4.3 mmol/L (3.6-5.0); SODIUM 140 mmol/L (132-148)
[2017-02-27] MEDS: Aspirin 325 mg EC Tablets PO SCH (08:53)
[2017-02-27] MEDS: Arformoterol 15 mcg/2 ml Inh Sol IH SCH ×2 (10:12→19:36)
[2017-02-27] MEDS: Budesonide 0.25 mg/2 ml Inhal Susp UD IH SCH ×2 (10:13→19:35)
[2017-02-27] MEDS: MESALAMINE PO SCH (11:17)
[2017-02-27] MEDS: Tiotropium 18 mcg Cap For Inhalation IH SCH (11:17)
[2017-02-27] MEDS: POLYETHYLENE GLYCOL 3350 17 GM/Dose PACKET PO SCH (11:17)
--- NOTE | 2017-02-27 11:21 | CP.PCM.PN ---
<Paul Beavers - Last Filed: 02/27/17 11:22> Subjective - Date & Time of Evaluation Date of Evaluation: 02/27/17 Time of Evaluation: 11:20 - Subjective Subjective: Patient seen and examined. No overnight events reported. Patient has no complaints. Pain is controlled. Patient denies any fever, chills, SOB, chest pain, abdominal pain, changes in bowel habits or urinary symptoms. Is aware of surgery tomorrow. Objective - Vital Signs/Intake and Output Vital Signs (last 24 hours): Temp Pulse Resp BP Pulse Ox 97.9 F 99 H 16 132/68 96 02/25/17 06:00 02/25/17 10:44 02/25/17 06:00 02/26/17 10:32 02/25/17 06:00 - Medications Medications: Current Medications Acetaminophen (Tylenol 325mg Tab) 650 mg PO Q4H PRN PRN Reason: Pain, Mild (1-3) Albuterol/Ipratropium (Duoneb 3 Mg/0.5 Mg (3 Ml) Ud) 3 ml IH [id number] PRN PRN Reason: Shortness of Breath Last Admin: 02/22/17 19:32 Dose: 3 ml Amlodipine Besylate (Norvasc) 5 mg PO DAILY [facility] PRN Reason: Protocol Last Admin: 02/26/17 10:32 Dose: 5 mg Arformoterol Tartrate (Brovana) 5 mcg IH BID [facility] Last Admin: 02/27/17 10:12 Dose: 5 mcg Aspirin (Ecotrin) 325 mg PO 0800 [facility] Last Admin: 02/27/17 08:53 Dose: 325 mg Budesonide (Pulmicort Respules) 0.25 mg IH Q12H [facility] Last Admin: 02/27/17 10:13 Dose: 0.25 mg Docusate Sodium (Colace) 100 mg PO TID [facility] PRN Reason: Protocol Last Admin: 02/26/17 17:15 Dose: Not Given Ibuprofen (Motrin Tab) 600 mg PO Q6 PRN; Protocol PRN Reason: Pain, moderate (4-7) Ketorolac Tromethamine (Toradol) 15 mg IVP Q6 PRN PRN Reason: moderate pain ( 8-10) Last Admin: 02/26/17 21:33 Dose: 15 mg Losartan Potassium (Cozaar) 100 mg PO DAILY [facility] PRN Reason: Protocol Last Admin: 02/26/17 10:33 Dose: 100 mg Mesalamine [Apriso] (4 Tab (Home Med)) 4 tab PO DAILY [facility] Last Admin: 02/26/17 10:32 Dose: Not Given Pantoprazole Sodium (Protonix Ec Tab) 40 mg PO 0600 MOE PRN Reason: Protocol Last Admin: 02/27/17 05:23 Dose: 40 mg Polyethylene Glycol (Miralax) 17 gm PO DAILY MOE PRN Reason: Protocol Last Admin: 02/26/17 10:33 Dose: Not Given Tiotropium [place] (Spiriva) 18 mcg IH DAILY MOE PRN Reason: Protocol Last Admin: 02/26/17 10:33 Dose: 18 mcg Tramadol HCl (Ultram) 50 mg PO TID PRN PRN Reason: Pain, severe (8-10) - Labs Labs: 02/27/17 06:10 02/27/17 06:10 PT 12.1 SECONDS (9.4-12.5) 02/27/17 06:10 INR 1.10 (0.93-1.08) H 02/27/17 06:10 APTT 25.1 Seconds (25.1-36.5) 02/27/17 06:10 - Additional Findings Additional findings: - Constitutional Appears: Well - Head Exam Head Exam: ATRAUMATIC, NORMAL INSPECTION, NORMOCEPHALIC - Eye Exam Eye Exam: EOMI, Normal appearance, PERRL Pupil Exam: NORMAL ACCOMODATION, PERRL - ENT Exam ENT Exam: Mucous Membranes Moist, Normal Exam, Normal External Ear Exam - Neck Exam Neck Exam: Full ROM, Normal Inspection. absent: Lymphadenopathy - Respiratory Exam Respiratory Exam: Clear to Ausculation Bilateral, NORMAL BREATHING PATTERN. absent: Rales, Rhonchi, Wheezes, Respiratory Distress - Cardiovascular Exam Cardiovascular Exam: REGULAR RHYTHM, +S1, +S2. absent: Tachycardia, Murmur - GI/Abdominal Exam GI & Abdominal Exam: Soft, Normal Bowel Sounds. absent: Tenderness, Rebound - Extremities Exam Extremities Exam: Normal Capillary Refill, Normal Inspection. absent: Calf Tenderness, Joint Swelling, Pedal Edema Additional comments: Patient has external fixator in place - Back Exam Back Exam: Full ROM, NORMAL INSPECTION. absent: CVA tenderness (L), CVA tenderness (R) - Neurological Exam Neurological Exam: Alert, Awake, CN II-XII Intact, Normal Gait, Oriented x3 - Psychiatric Exam Psychiatric exam: Normal Affect, Normal Mood - Skin Skin Exam: Dry, Intact, Normal Color, Warm Assessment and Plan - Assessment and Plan (Free Text) Assessment: 66 year old male with past medical history of COPD, HTN, and colitis who s/p external fixation of distal tibia/ fibula POD day #9. Plan: Mechanical Fall (s/p external fixation reducing fractures-dislocation of distal tibia/fibula) - Patient POD #9. Surgery tomorrow - Orthopedic surgery re-consulted. Recommendations appreciated. - Continue Toradol for pain management. - Further pain control with tylenol as patient is allergic to morphine/codeine and NSAIDs are contraindicated as patient may need operative correction of the right lower extremity Chronic COPD -home medication restarted: Tiotropium, Brovana, Pulmicort Respules -Continue duobnebs q4 prn -encouraged patient to use incentive spirometer while healing. Advised patient to remain continue exercises in the bed while in TCU. Potential ETOH Withdrawal (Resolved) Hypertension - Amlodipine 5 mg PO daily - Cozaar 100 mg PO Prophylaxis: DVT - ASA; GI - Protonix Patient seen and discussed with Attending Paul Beavers - PGY-1 <Catherine Arreaga - Last Filed: 02/27/17 12:41> Objective - Vital Signs/Intake and Output Vital Signs (last 24 hours): Temp Pulse Resp BP Pulse Ox 97.9 F 79 16 112/71 96 02/25/17 06:00 02/27/17 11:17 02/25/17 06:00 02/27/17 11:17 02/25/17 06:00 - Medications Medications: Current Medications Acetaminophen (Tylenol 325mg Tab) 650 mg PO Q4H PRN PRN Reason: Pain, Mild (1-3) Albuterol/Ipratropium (Duoneb 3 Mg/0.5 Mg (3 Ml) Ud) 3 ml IH [id number] PRN PRN Reason: Shortness of Breath Last Admin: 02/22/17 19:32 Dose: 3 ml Amlodipine Besylate (Norvasc) 5 mg PO DAILY MOE PRN Reason: Protocol Last Admin: 02/27/17 11:17 Dose: 5 mg Arformoterol Tartrate (Brovana) 5 mcg IH BID [facility] Last Admin: 02/27/17 10:12 Dose: 5 mcg Aspirin (Ecotrin) 325 mg PO 0800 [facility] Last Admin: 02/27/17 08:53 Dose: 325 mg Budesonide (Pulmicort Respules) 0.25 mg IH Q12H [facility] Last Admin: 02/27/17 10:13 Dose: 0.25 mg Docusate Sodium (Colace) 100 mg PO TID MOE PRN Reason: Protocol Last Admin: 02/27/17 11:16 Dose: 100 mg Ibuprofen (Motrin Tab) 600 mg PO Q6 PRN; Protocol PRN Reason: Pain, moderate (4-7) Ketorolac Tromethamine (Toradol) 15 mg IVP Q6 PRN PRN Reason: moderate pain ( 8-10) Last Admin: 02/27/17 11:18 Dose: 15 mg Losartan Potassium (Cozaar) 100 mg PO DAILY [facility] PRN Reason: Protocol Last Admin: 02/27/17 11:16 Dose: 100 mg Mesalamine [Apriso] (4 Tab (Home Med)) 4 tab PO DAILY [facility] Last Admin: 02/27/17 11:17 Dose: Not Given Pantoprazole Sodium (Protonix Ec Tab) 40 mg PO 0600 [facility] PRN Reason: Protocol Last Admin: 02/27/17 05:23 Dose: 40 mg Polyethylene Glycol (Miralax) 17 gm PO DAILY [facility] PRN Reason: Protocol Last Admin: 02/27/17 11:17 Dose: 17 gm Tiotropium Startex (Spiriva) 18 mcg IH DAILY [facility] PRN Reason: Protocol Last Admin: 02/27/17 11:17 Dose: 18 mcg Tramadol HCl (Ultram) 50 mg PO TID PRN PRN Reason: Pain, severe (8-10) - Labs Labs: 02/27/17 06:10 02/27/17 06:10 PT 12.1 SECONDS (9.4-12.5) 02/27/17 06:10 INR 1.10 (0.93-1.08) H 02/27/17 06:10 APTT 25.1 Seconds (25.1-36.5) 02/27/17 06:10 Attending/Attestation - Attestation I have personally seen and examined this patient.: Yes I have fully participated in the care of the patient.: Yes I have reviewed all pertinent clinical information, including history, physical exam and plan: Yes Notes (Text): 02/27/17 12:38 66 year old male with past medical history of hypertension and COPD who presented s/p fall found to have fracture of distal tibia/fibula. He is s/p external fixation last week. He is being followed by PT and orthopedics while in TCU. Plan is for OR possibly tomorrow. He was counselled on alcohol abstinence. Catherine Arreaga MD Hospitalist.
--- NOTE | 2017-02-27 12:51 | PN ---
DATE: SUBJECTIVE: A 66-year-old male admitted to the hospital on 02/16/2017, sustained a highly comminuted displaced swollen right ankle fracture. It was too swollen for surgery, so we put him in a temporizing transarticular external fixator on 02/17/2017. He did well. Reduction was good, but he still will need ORIF to give him out the external fixator, so we will plan doing that tomorrow, the 28 of February. Remove the external fixator, put a fibular plate on the possible medial malleolar screws. The swelling is down. He has no complaints of undue pain. He is showing that he can ambulate weightbearing, so we will do the ORIF tomorrow and send him home within 48 hours and following at the office. FINAL DIAGNOSIS: Highly comminuted displaced bimalleolar fracture of the right ankle in temporizing transarticular external fixator implants, do open reduction internal fixation in the morning on the 28 of February and we will follow him there. Naga Jeff DO
[2017-02-27 14:29] VITALS: RESP 20
[2017-02-27 18:00] VITALS: BP 130/87; PULSE 91; TEMP 97.9; O2SAT 94
[2017-02-28] MEDS: Pantoprazole 40 mg EC Tab PO SCH (05:25)
[2017-02-28] MEDS ORDERED: Propofol 10 mg/ml Inj (20 ML) ONE (07:33)
[2017-02-28] MEDS ORDERED: Midazolam 2 MG/2 ML VIAL ONE (07:33)
[2017-02-28] MEDS ORDERED: HYDROmorphone 0.5 mg/0.5 ml ISec IVP PRN (10:31)
[2017-02-28] MEDS ORDERED: Lactated Ringer's 1,000 ML IV SCH (10:45)
[2017-02-28] MEDS: Budesonide 0.25 mg/2 ml Inhal Susp UD IH SCH (11:26)
[2017-02-28] MEDS: Arformoterol 15 mcg/2 ml Inh Sol IH SCH (11:26)
--- NOTE | 2017-02-28 12:58 | CP.PCM.DIS ---
<Paul Beavers - Last Filed: 02/28/17 16:26> Provider - Provider Date of Admission: 02/20/17 21:50 Attending physician: Catherine Arreaga MD Primary care physician: Gwyn Mcknight MD Consults: Bhavesh Jeff Time Spent in preparation of Discharge (in minutes): 45 Diagnosis - Discharge Diagnosis (1) Trimalleolar fracture Status: Acute Comment: Underwent ORIF on 02/28/17 Hospital Course - Lab Results Lab Results: Most Recent Lab Values WBC 7.9 10^3/ul (4.5-11.0) 02/27/17 06:10 RBC 4.27 10^6/uL (3.5-6.1) 02/27/17 06:10 Hgb 13.1 g/dL (14.0-18.0) L 02/27/17 06:10 Hct 39.9 % (42.0-52.0) L 02/27/17 06:10 MCV 93.4 fl (80.0-105.0) 02/27/17 06:10 MCH 30.7 pg (25.0-35.0) 02/27/17 06:10 MCHC 32.8 g/dl (31.0-37.0) 02/27/17 06:10 RDW 12.8 % (11.5-14.5) 02/27/17 06:10 Plt Count 264 10^3/uL (120.0-450.0) 02/27/17 06:10 MPV 10.0 fl (7.0-11.0) 02/27/17 06:10 Gran % 62.7 % (50.0-68.0) 02/27/17 06:10 Lymph % (Auto) 25.5 % (22.0-35.0) 02/27/17 06:10 Wise % (Auto) 8.5 % (1.0-6.0) H 02/27/17 06:10 Eos % (Auto) 3.0 % (1.5-5.0) 02/27/17 06:10 Baso % (Auto) 0.3 % (0.0-3.0) 02/27/17 06:10 Gran # 4.95 (1.4-6.5) 02/27/17 06:10 Lymph # 2.0 (1.2-3.4) 02/27/17 06:10 Wise # 0.7 (0.1-0.6) H 02/27/17 06:10 Eos # 0.2 (0.0-0.7) 02/27/17 06:10 Baso # 0.02 K/mm3 (0.0-2.0) 02/27/17 06:10 PT 12.1 SECONDS (9.4-12.5) 02/27/17 06:10 INR 1.10 (0.93-1.08) H 02/27/17 06:10 APTT 25.1 Seconds (25.1-36.5) 02/27/17 06:10 Sodium 140 mmol/L (132-148) 02/27/17 06:10 Potassium 4.3 mmol/L (3.6-5.0) 02/27/17 06:10 Chloride 107 mmol/L (98-107) 02/27/17 06:10 Carbon Dioxide 24 mmol/L (21-33) 02/27/17 06:10 Anion Gap 14 (10-20) 02/27/17 06:10 BUN 20 mg/dL (7-21) 02/27/17 06:10 Creatinine 1.0 mg/dl (0.8-1.5) 02/27/17 06:10 Est GFR ( Amer) > 60 02/27/17 06:10 Est GFR (Non-Af Amer) > 60 02/27/17 06:10 Random Glucose 105 mg/dL (70-110) 02/27/17 06:10 Calcium 9.3 mg/dL (8.4-10.5) 02/27/17 06:10 Total Bilirubin 1.2 mg/dL (0.2-1.3) 02/27/17 06:10 Direct Bilirubin 0.3 mg/dL (0.0-0.4) 02/26/17 07:30 AST 20 U/L (17-59) 02/27/17 06:10 ALT 39 U/L (7-56) 02/27/17 06:10 Alkaline Phosphatase 70 U/L (38-126) 02/27/17 06:10 Total Protein 7.0 g/dL (5.8-8.3) 02/27/17 06:10 Albumin 3.7 g/dL (3.0-4.8) 02/27/17 06:10 Globulin 3.3 gm/dL 02/27/17 06:10 Albumin/Globulin Ratio 1.1 (1.1-1.8) 02/27/17 06:10 - Hospital Course Hospital Course: Patient is a 66 year old male with past medical history of COPD, HTN, and colitis who presents to the emergency department via EMS for evaluation and treatment of a fall and right ankle pain. Fall was mechanical 2/2 EtoH intoxication. Patient diagnosed with Trimalleor fracture and underwent external fixation and reduction in E.R. Patient was then admitted to the TCU pending surgical intervention. Patient was restarted on his home meds. He underwent ORIF on 02/28/17. Patient will be dc'd from medical floor and admitted to general medical floor post surgery. Patient agreeable to plan Discussed Patient with Attending Paul Beavers PGY-1 Discharge Exam - Head Exam Head Exam: ATRAUMATIC, NORMAL INSPECTION, NORMOCEPHALIC - Additional Findings Additional findings: - Head Exam Head Exam: ATRAUMATIC, NORMAL INSPECTION, NORMOCEPHALIC - Eye Exam Eye Exam: EOMI, Normal appearance, PERRL. absent: Periorbital tenderness Pupil Exam: NORMAL ACCOMODATION, PERRL. absent: Mydriatic - ENT Exam ENT Exam: Mucous Membranes Moist, Normal Oropharynx - Neck Exam Neck exam: Positive for: Normal Inspection. Negative for: Meningismus - Respiratory Exam Respiratory Exam: Clear to Auscultation Bilateral, NORMAL BREATHING PATTERN. absent: Chest Wall Tenderness, Prolonged Expiratory Phase, Respiratory Distress - Cardiovascular Exam Cardiovascular Exam: REGULAR RHYTHM, +S1, +S2 - GI/Abdominal Exam GI & Abdominal Exam: Normal Bowel Sounds, Soft. absent: Distended, Hypoactive Bowel Sounds, Organomegaly, Tenderness - Extremities Exam Additional comments: right ankle has external fixator present and wrapped in a cast. - Back Exam Back exam: NORMAL INSPECTION. absent: CVA tenderness (L), CVA tenderness (R), paraspinal tenderness - Neurological Exam Neurological exam: Alert, CN II-XII Intact, Oriented x3 - Psychiatric Exam Psychiatric exam: Normal Affect, Normal Mood - Skin Skin Exam: Dry, Intact Discharge Plan - Follow Up Plan Condition: GOOD Disposition: Trans to Other Acute Care Hosp Instructions: Ankle Fracture (DC), Ankle Fracture (GEN), External Fixation of an Ankle Fracture (DC), External Fixation of an Ankle Fracture (GEN) Referrals: Gwyn Mcknight MD [Primary Care Provider] - <Catherine Arreaga - Last Filed: 02/28/17 16:37> Provider - Provider Date of Admission: 02/20/17 21:50 Attending physician: Catherine Arreaga MD Primary care physician: Gwyn Mcknight MD Hospital Course - Lab Results Lab Results: Most Recent Lab Values WBC 7.9 10^3/ul (4.5-11.0) 02/27/17 06:10 RBC 4.27 10^6/uL (3.5-6.1) 02/27/17 06:10 Hgb 13.1 g/dL (14.0-18.0) L 02/27/17 06:10 Hct 39.9 % (42.0-52.0) L 02/27/17 06:10 MCV 93.4 fl (80.0-105.0) 02/27/17 06:10 MCH 30.7 pg (25.0-35.0) 02/27/17 06:10 MCHC 32.8 g/dl (31.0-37.0) 02/27/17 06:10 RDW 12.8 % (11.5-14.5) 02/27/17 06:10 Plt Count 264 10^3/uL (120.0-450.0) 02/27/17 06:10 MPV 10.0 fl (7.0-11.0) 02/27/17 06:10 Gran % 62.7 % (50.0-68.0) 02/27/17 06:10 Lymph % (Auto) 25.5 % (22.0-35.0) 02/27/17 06:10 Wise % (Auto) 8.5 % (1.0-6.0) H 02/27/17 06:10 Eos % (Auto) 3.0 % (1.5-5.0) 02/27/17 06:10 Baso % (Auto) 0.3 % (0.0-3.0) 02/27/17 06:10 Gran # 4.95 (1.4-6.5) 02/27/17 06:10 Lymph # 2.0 (1.2-3.4) 02/27/17 06:10 Wise # 0.7 (0.1-0.6) H 02/27/17 06:10 Eos # 0.2 (0.0-0.7) 02/27/17 06:10 Baso # 0.02 K/mm3 (0.0-2.0) 02/27/17 06:10 PT 12.1 SECONDS (9.4-12.5) 02/27/17 06:10 INR 1.10 (0.93-1.08) H 02/27/17 06:10 APTT 25.1 Seconds (25.1-36.5) 02/27/17 06:10 Sodium 140 mmol/L (132-148) 02/27/17 06:10 Potassium 4.3 mmol/L (3.6-5.0) 02/27/17 06:10 Chloride 107 mmol/L (98-107) 02/27/17 06:10 Carbon Dioxide 24 mmol/L (21-33) 02/27/17 06:10 Anion Gap 14 (10-20) 02/27/17 06:10 BUN 20 mg/dL (7-21) 02/27/17 06:10 Creatinine 1.0 mg/dl (0.8-1.5) 02/27/17 06:10 Est GFR ( Amer) > 60 02/27/17 06:10 Est GFR (Non-Af Amer) > 60 02/27/17 06:10 Random Glucose 105 mg/dL (70-110) 02/27/17 06:10 Calcium 9.3 mg/dL (8.4-10.5) 02/27/17 06:10 Total Bilirubin 1.2 mg/dL (0.2-1.3) 02/27/17 06:10 Direct Bilirubin 0.3 mg/dL (0.0-0.4) 02/26/17 07:30 AST 20 U/L (17-59) 02/27/17 06:10 ALT 39 U/L (7-56) 02/27/17 06:10 Alkaline Phosphatase 70 U/L (38-126) 02/27/17 06:10 Total Protein 7.0 g/dL (5.8-8.3) 02/27/17 06:10 Albumin 3.7 g/dL (3.0-4.8) 02/27/17 06:10 Globulin 3.3 gm/dL 02/27/17 06:10 Albumin/Globulin Ratio 1.1 (1.1-1.8) 02/27/17 06:10 Attending/Attestation - Attestation I have personally seen and examined this patient.: Yes I have fully participated in the care of the patient.: Yes I have reviewed all pertinent clinical information, including history, physical exam and plan: Yes
[2017-02-28] MEDS ORDERED: ceFAZolin 1 GM in Sodium Chloride 0.9% 50 ML IVPB SCH (17:00)
== END 2017-02-28 11:35 | disposition short-term general hospital (02) | DRG 561 ==
LOC: TRCU 21:50
PROVIDERS: ADMIT Internal Medicine; ATTEND Internal Medicine
PROC: F07Z9FZ Gait Training/Functional Ambulation Treatment using Assistive, Adaptive, Supportive or Protective Equipment (ICD-10-PCS; principal; 2017-02-22)
PROC: F07Z8ZZ Transfer Training Treatment (ICD-10-PCS; 2017-02-22)
DX: S82.841D Displaced bimalleolar fracture of right lower leg, subsequent encounter for closed fracture with routine healing (principal); J44.9 Chronic obstructive pulmonary disease, unspecified; I10 Essential (primary) hypertension; K52.9 Noninfective gastroenteritis and colitis, unspecified; Z87.891 Personal history of nicotine dependence; V48.4XXD Person boarding or alighting a car injured in noncollision transport accident, subsequent encounter

== ENCOUNTER 2017-02-28 07:18 | Day surgery (SDC) | payer MEDICARE, OTHER ==
[2017-02-24 12:31] VITALS: BMI 39.2
[2017-02-28] MEDS ORDERED: Bupivacaine 0.5% Inj(30mL) ONE (07:31)
[2017-02-28 10:44] VITALS: RESP 18
--- NOTE | 2017-02-28 13:06 | CP.PCM.HP ---
<Paul Beavers - Last Filed: 02/28/17 13:24> History of Present Illness - History of Present Illness History of Present Illness: Patient is a 66 year old male with past medical history of COPD, HTN, and colitis who presents s/p ORIF. Fracture occurred on 02/21 and underwent external fixation in the E.R. He was then admitted to TCU with external fixator with the goal of reducing the swelling before the surgery. Patient has no complaints at this time. He states that he is going home tomorrow. ROS NEGATIVES: Fever, chills, headache, chest pain, SOB, abdominal pain, n/v/d, constipation, urinary symptoms, sensory loss, focal weakness. Past medical history: COPD, HTN, colitis Past surgical history: cholecystectomy, colectomy (8inches total), bilateral knee surgeries, cervical spine fusion (unsure of levels), tonsilectomy, ORIF ( today) Allergies: Denies Family history: noncontributory Social History: social alcohol use, quit 2 years ago however smoked 1-1.5 pack per day for 40 years, denies illicit drug use Medications: Please see medication reconciliation Present on Admission - Present on Admission Any Indicators Present on Admission: No Review of Systems - Review of Systems Review of Systems: As per HPI Past Patient History - Infectious Disease Hx of Infectious Diseases: None - Tetanus Immunizations Tetanus Immunization: Unknown - Past Social History Smoking Status: Former Smoker - CARDIAC Hx Pacemaker: No - PULMONARY Hx Chronic Obstructive Pulmonary Disease (COPD): Yes - NEUROLOGICAL Hx Paralysis: No - HEENT Hx HEENT Problems: No - RENAL Hx Chronic Kidney Disease: No - ENDOCRINE/METABOLIC Hx Endocrine Disorders: No - HEMATOLOGICAL/ONCOLOGICAL Hx Blood Transfusions: Yes Hx Blood Transfusion Reaction: No - INTEGUMENTARY Hx Dermatological Problems: No - MUSCULOSKELETAL/RHEUMATOLOGICAL Hx Musculoskeletal Disorders: Yes (FX R ANKLE) - GASTROINTESTINAL Hx Gastrointestinal Disorders: Yes Hx Crohn's Disease: (colitis) Other/Comment: Colitis, - GENITOURINARY/GYNECOLOGICAL Hx Genitourinary Disorders: No - PSYCHIATRIC Hx Emotional Abuse: No Hx Physical Abuse: No Hx Substance Use: No - SURGICAL HISTORY Hx Surgeries: Yes - ANESTHESIA Hx Anesthesia Reactions: Yes (INTENSE STOMACH PAIN FROM MORPHINE ) Hx Malignant Hyperthermia: No Meds Allergies/Adverse Reactions: Allergies Allergy/AdvReac Type Severity Reaction Status Date / Time codeine Allergy Severe ANAPHYLAXIS Verified 02/20/17 23:16 morphine Allergy Severe ANAPHYLAXIS Verified 02/20/17 23:16 Physical Exam - Additional Findings Additional findings: - Constitutional Appears: Well - Head Exam Head Exam: ATRAUMATIC, NORMAL INSPECTION, NORMOCEPHALIC - Eye Exam Eye Exam: EOMI, Normal appearance, PERRL Pupil Exam: NORMAL ACCOMODATION, PERRL - ENT Exam ENT Exam: Mucous Membranes Moist, Normal Exam, Normal External Ear Exam - Neck Exam Neck Exam: Full ROM, Normal Inspection. absent: Lymphadenopathy - Respiratory Exam Respiratory Exam: Clear to Ausculation Bilateral, NORMAL BREATHING PATTERN. absent: Rales, Rhonchi, Wheezes, Respiratory Distress - Cardiovascular Exam Cardiovascular Exam: REGULAR RHYTHM, +S1, +S2. absent: Tachycardia, Murmur - GI/Abdominal Exam GI & Abdominal Exam: Soft, Normal Bowel Sounds. absent: Tenderness, Rebound - Extremities Exam Extremities Exam: Normal Capillary Refill, Normal Inspection. absent: Calf Tenderness, Joint Swelling, Pedal Edema Additional comments: Right Ankle Cast - Back Exam Back Exam: Full ROM, NORMAL INSPECTION. absent: CVA tenderness (L), CVA tenderness (R) - Neurological Exam Neurological Exam: Alert, Awake, CN II-XII Intact, Oriented x3 - Psychiatric Exam Psychiatric exam: Normal Affect, Normal Mood - Skin Skin Exam: Dry, Intact, Normal Color, Warm Results - Vital Signs Recent Vital Signs: Last Vital Signs Temp 97.5 F L 02/28/17 11:28 Pulse 68 02/28/17 11:28 Resp 18 02/28/17 11:28 BP 135/84 02/28/17 11:28 Pulse Ox 96 02/28/17 06:55 Assessment & Plan - Assessment and Plan (Free Text) Assessment: 66 year old male with past medical history of COPD, HTN, and colitis who s/p ORIF POD # 0 Plan: Mechanical Fall (s/p external fixation reducing fractures-dislocation of distal tibia/fibula) - Patient POD # ) - Orthopedic surgery consult (Dr Jeff) - Continue Toradol for pain management. - Further pain control with tylenol as patient is allergic to morphine/codeine and NSAIDs are contraindicated as patient may need operative correction of the right lower extremity Chronic COPD -Start home meds: Tiotropium, Brovana, Pulmicort Respules -Duobnebs q4 prn Potential ETOH Withdrawal (Resolved) Hypertension - Amlodipine 5 mg PO daily - Cozaar 100 mg PO Prophylaxis: DVT - ASA; GI - Protonix Patient seen and discussed with Attending Paul Beavers - PGY-1 - Date & Time Date: 02/28/17 Time: 13:43 <Catherine Arreaga - Last Filed: 02/28/17 13:56> Results - Vital Signs Recent Vital Signs: Last Vital Signs Temp 97.5 F L 02/28/17 11:28 Pulse 68 02/28/17 11:28 Resp 18 02/28/17 11:28 BP 135/84 02/28/17 11:28 Pulse Ox 96 02/28/17 06:55 Attending/Attestation - Attestation I have personally seen and examined this patient.: Yes I have fully participated in the care of the patient.: Yes I have reviewed all pertinent clinical information: Yes Notes (Text): 02/28/17 13:55 66 year old male with past medical history of hypertension and COPD who presented s/p fall found to have fracture of distal tibia/fibula. He is s/p external fixation last week and s/p ORIF today. Orthopedics is following and PT follow up was requested post op. He was counselled on alcohol abstinence. Catherine Arreaga MD Hospitalist.
[2017-02-28] MEDS ORDERED: Albuterol-Ipratrop 3 mg / 0.5 (3 ml) UD IH PRN (13:49)
[2017-02-28] MEDS: Tiotropium 18 mcg Cap For Inhalation IH SCH (15:03)
[2017-02-28] MEDS: ceFAZolin 1 gm in NS 1 GM/100 ML BAG IVPB SCH ×2 (17:01→21:34)
[2017-02-28] MEDS: Arformoterol 15 mcg/2 ml Inh Sol IH SCH (20:00)
[2017-02-28] MEDS: Budesonide 0.25 mg/2 ml Inhal Susp UD IH SCH (20:00)
--- NOTE | 2017-02-28 21:10 | OP ---
DATE: 02/28/2017 PREOPERATIVE DIAGNOSIS: Removal of external fixator right ankle, put on 02/17/2017 and open reduction and internal fixation of the fracture dislocation, trimalleolar of the right ankle from 02/16/2017. PROCEDURE: Removal of external fixator right ankle and open reduction and internal fixation of bimalleolar fracture, right ankle with Synthes 8-hole plate and 8 screws. TYPE OF ANESTHESIA: General endotracheal tube. DESCRIPTION OF PROCEDURE: The patient was taken to the OR, right ankle prepped and draped in sterile fashion. External fixator was clean and we prepped everything sterile and took the lateral part of the frame off to allow us to get through the lateral malleolus, and prepping and draping were made over incision of the lateral malleolus by going 3 inches above and 2 inches below the fracture. Dissection was done to retract the peroneal tendons and the fascia and the periosteum. We could visualize the fracture was very distal and mostly was posterior with the anterior comminution. So we bent the plate distally to fit an 8-hole plate and bent the tip so we could put two screws distally and we compressed the fracture through the plate x2. Now, we put 4 screws proximally and one of those screws was a syndesmotic screw to hold the ligament because there was little opening of syndesmosis. X-ray showed good position of the fracture, the hardware and the syndesmotic ligament was put under stress and we did not open the joint. We thoroughly irrigated everything and no tourniquet was utilized. We closed the wound in layers 0 Vicryl to deep layer, 2-0 Vicryl to subcutaneous tissue, and skin with combination of 3-0 nylon and mike. The patient was put on coaptation splint laterally and posterior and sent to recovery room in good condition.a syndesmotic screw was aiso used to stabilize the weakned syndesmotic ligament by securing four cortices of the fibula and the tibia about 3 cm above the ankle mortise. Naga Jeff DO MTDNader
[2017-02-28] MEDS ORDERED: Influenza Vaccine 60 mcg/0.5 mL SYR (4YR UP) IM ONE (21:52)
[2017-02-28] MEDS ORDERED: Pneumococcal 23-Valent Vaccine IM ONE (21:52)
[2017-03-01] MEDS: Arformoterol 15 mcg/2 ml Inh Sol IH SCH (07:42)
[2017-03-01] MEDS: Budesonide 0.25 mg/2 ml Inhal Susp UD IH SCH (07:43)
[2017-03-01 09:46] VITALS: PULSE 90; TEMP 99.2; O2SAT 93
[2017-03-01 09:47] VITALS: BP 127/78
[2017-03-01 10:40] LABS: BASO # 0.02 K/mm3 (0.0-2.0); BASO % 0.2 % (0.0-3.0); EOS # 0.2 (0.0-0.7); EOS % 1.5 % (1.5-5.0); GRAN # 8.51 (1.4-6.5); GRAN % 67.6 % (50.0-68.0); HEMOGLOBIN 12.3 g/dL (14.0-18.0); LYMPH # 2.8 (1.2-3.4); LYMPH % 22.4 % (22.0-35.0); MEAN CELL VOLUME 94.5 fl (80.0-105.0); MEAN CORPUSCULAR HGB CONC 32.8 g/dl (31.0-37.0); MONO # 1.1 (0.1-0.6); MONO % 8.3 % (1.0-6.0); RBC 3.97 10^6/uL (3.5-6.1); RED CELL DISTRIBUTION WIDTH 12.8 % (11.5-14.5); WHITE BLOOD COUNT 12.6 10^3/ul (4.5-11.0)
[2017-03-01 10:59] LABS: ALB/GLOB RATIO 1.1 (1.1-1.8); ALBUMIN 3.6 g/dL (3.0-4.8); ALT/SGPT 44 U/L (7-56); AST/SGOT 107 U/L (17-59); BLOOD UREA NITROGEN 18 mg/dL (7-21); CALCIUM 8.8 mg/dL (8.4-10.5); GFR AFRICAN-AMERICAN > 60; GFR NON-AFRICAN AMERICAN > 60
--- NOTE | 2017-03-01 12:51 | RAD ---
PROCEDURE: Less than 1 hr fluoroscopic time utilized during performance of the procedure. HISTORY: ORIF RT ANKLE COMPARISON: None TECHNIQUE: Standard protocol for this study/examination. FINDINGS: Total fluoroscopic time (continuous mode) utilized during the procedure: 18.1 seconds. Total exam DLP: (mGy): 1.11 IMPRESSION: Less than 1 hr fluoroscopic time utilized during performance of the procedure.
[2017-03-01] MEDS ORDERED: Pneumococcal 23-Valent Vaccine IM ONE (14:31)
--- NOTE | 2017-03-01 14:52 | CP.PCM.DIS ---
<Paul Beavers - Last Filed: 03/01/17 14:44> Provider - Provider Date of Admission: 02/28/17 Attending physician: Catherine Arreaga MD Primary care physician: Gwyn Mcknight MD Consults: Ortho Dr. Bee Time Spent in preparation of Discharge (in minutes): 31 Diagnosis - Discharge Diagnosis (1) Trimalleolar fracture Status: Acute Comment: Underwent ORIF Hospital Course - Lab Results Lab Results: Most Recent Lab Values WBC 12.6 10^3/ul (4.5-11.0) H D 03/01/17 10:30 RBC 3.97 10^6/uL (3.5-6.1) 03/01/17 10:30 Hgb 12.3 g/dL (14.0-18.0) L 03/01/17 10:30 Hct 37.5 % (42.0-52.0) L 03/01/17 10:30 MCV 94.5 fl (80.0-105.0) 03/01/17 10:30 MCH 31.0 pg (25.0-35.0) 03/01/17 10:30 MCHC 32.8 g/dl (31.0-37.0) 03/01/17 10:30 RDW 12.8 % (11.5-14.5) 03/01/17 10:30 Plt Count 257 10^3/uL (120.0-450.0) 03/01/17 10:30 MPV 10.0 fl (7.0-11.0) 03/01/17 10:30 Gran % 67.6 % (50.0-68.0) 03/01/17 10:30 Lymph % (Auto) 22.4 % (22.0-35.0) 03/01/17 10:30 [place] % (Auto) 8.3 % (1.0-6.0) H 03/01/17 10:30 Eos % (Auto) 1.5 % (1.5-5.0) 03/01/17 10:30 Baso % (Auto) 0.2 % (0.0-3.0) 03/01/17 10:30 Gran # 8.51 (1.4-6.5) H 03/01/17 10:30 Lymph # 2.8 (1.2-3.4) 03/01/17 10:30 [place] # 1.1 (0.1-0.6) H 03/01/17 10:30 Eos # 0.2 (0.0-0.7) 03/01/17 10:30 Baso # 0.02 K/mm3 (0.0-2.0) 03/01/17 10:30 Sodium 138 mmol/L (132-148) 03/01/17 10:30 Potassium 4.1 mmol/L (3.6-5.0) 03/01/17 10:30 Chloride 106 mmol/L (98-107) 03/01/17 10:30 Carbon Dioxide 23 mmol/L (21-33) 03/01/17 10:30 Anion Gap 14 (10-20) 03/01/17 10:30 BUN 18 mg/dL (7-21) 03/01/17 10:30 Creatinine 1.2 mg/dl (0.8-1.5) 03/01/17 10:30 Est GFR ( Amer) > 60 03/01/17 10:30 Est GFR (Non-Af Amer) > 60 03/01/17 10:30 Random Glucose 117 mg/dL (70-110) H 03/01/17 10:30 Calcium 8.8 mg/dL (8.4-10.5) 03/01/17 10:30 Total Bilirubin 1.4 mg/dL (0.2-1.3) H 03/01/17 10:30 AST 107 U/L (17-59) H D 03/01/17 10:30 ALT 44 U/L (7-56) 03/01/17 10:30 Alkaline Phosphatase 75 U/L (38-126) 03/01/17 10:30 Total Protein 6.9 g/dL (5.8-8.3) 03/01/17 10:30 Albumin 3.6 g/dL (3.0-4.8) 03/01/17 10:30 Globulin 3.2 gm/dL 03/01/17 10:30 Albumin/Globulin Ratio 1.1 (1.1-1.8) 03/01/17 10:30 - Hospital Course Hospital Course: 66 year old male with PMHx of COPD, HTN, and colitis. Admitted s/p ORIF for evaluation and treatment of any medical issues. Patient has been stable. Hospital course complicated by elevated LFT's likely 2/2 to alcohol abuse, Cefazolin or mixed presentation. Patient is stable for discharge. He has been told to follow up with Dr. Bee in 2 weeks and his PMD within a week. Patient has been told that he needs to recheck his liver enzymes. Amb Orders per Ortho. Patient is agreeable to plan and medications. Spoke to Delisa at Dr. Mcknight's office, she will let him know about patient's status and elevated LFT's. - Date & Time of H&P Date of H&P: 03/01/17 Time of H&P: 09:00 Discharge Exam - Additional Findings Additional findings: - Constitutional Appears: Well - Head Exam Head Exam: ATRAUMATIC, NORMAL INSPECTION, NORMOCEPHALIC - Eye Exam Eye Exam: EOMI, Normal appearance, PERRL Pupil Exam: NORMAL ACCOMODATION, PERRL - ENT Exam ENT Exam: Mucous Membranes Moist, Normal Exam, Normal External Ear Exam - Neck Exam Neck Exam: Full ROM, Normal Inspection. absent: Lymphadenopathy - Respiratory Exam Respiratory Exam: Clear to Ausculation Bilateral, NORMAL BREATHING PATTERN. absent: Rales, Rhonchi, Wheezes, Respiratory Distress - Cardiovascular Exam Cardiovascular Exam: REGULAR RHYTHM, +S1, +S2. absent: Tachycardia, Murmur - GI/Abdominal Exam GI & Abdominal Exam: Soft, Normal Bowel Sounds. absent: Tenderness, Rebound - Extremities Exam Extremities Exam: Normal Capillary Refill, Normal Inspection. absent: Calf Tenderness, Joint Swelling, Pedal Edema Additional comments: Right Ankle Cast - Back Exam Back Exam: Full ROM, NORMAL INSPECTION. absent: CVA tenderness (L), CVA tenderness (R) - Neurological Exam Neurological Exam: Alert, Awake, CN II-XII Intact, Oriented x3 - Psychiatric Exam Psychiatric exam: Normal Affect, Normal Mood - Skin Skin Exam: Dry, Intact, Normal Color, Warm Discharge Plan - Follow Up Plan Condition: GOOD Disposition: HOME/ ROUTINE Instructions: Acetaminophen (By mouth), Pneumococcal Polyvalent Vaccine (By injection), Acute Low Back Pain (DC), ORIF (DC) Additional Instructions: You have been discharged from [facility] . 1. Please follow up with Dr Bee in 2 week. 2. Please follow up with your primary medical physician. When you do please have your liver enzymes checked because they were high. . Referrals: Naga Jeff DO [Staff Provider] - Gwyn Mcknight MD [Primary Care Provider] - <Catherine Arreaga - Last Filed: 03/01/17 15:55> Provider - Provider Attending physician: Catherine Arreaga MD Primary care physician: Gwyn Mcknight MD Time Spent in preparation of Discharge (in minutes): 35 Hospital Course - Lab Results Lab Results: Most Recent Lab Values WBC 12.6 10^3/ul (4.5-11.0) H D 03/01/17 10:30 RBC 3.97 10^6/uL (3.5-6.1) 03/01/17 10:30 Hgb 12.3 g/dL (14.0-18.0) L 03/01/17 10:30 Hct 37.5 % (42.0-52.0) L 03/01/17 10:30 MCV 94.5 fl (80.0-105.0) 03/01/17 10:30 MCH 31.0 pg (25.0-35.0) 03/01/17 10:30 MCHC 32.8 g/dl (31.0-37.0) 03/01/17 10:30 RDW 12.8 % (11.5-14.5) 03/01/17 10:30 Plt Count 257 10^3/uL (120.0-450.0) 03/01/17 10:30 MPV 10.0 fl (7.0-11.0) 03/01/17 10:30 Gran % 67.6 % (50.0-68.0) 03/01/17 10:30 Lymph % (Auto) 22.4 % (22.0-35.0) 03/01/17 10:30 [place] % (Auto) 8.3 % (1.0-6.0) H 03/01/17 10:30 Eos % (Auto) 1.5 % (1.5-5.0) 03/01/17 10:30 Baso % (Auto) 0.2 % (0.0-3.0) 03/01/17 10:30 Gran # 8.51 (1.4-6.5) H 03/01/17 10:30 Lymph # 2.8 (1.2-3.4) 03/01/17 10:30 [place] # 1.1 (0.1-0.6) H 03/01/17 10:30 Eos # 0.2 (0.0-0.7) 03/01/17 10:30 Baso # 0.02 K/mm3 (0.0-2.0) 03/01/17 10:30 Sodium 138 mmol/L (132-148) 03/01/17 10:30 Potassium 4.1 mmol/L (3.6-5.0) 03/01/17 10:30 Chloride 106 mmol/L (98-107) 03/01/17 10:30 Carbon Dioxide 23 mmol/L (21-33) 03/01/17 10:30 Anion Gap 14 (10-20) 03/01/17 10:30 BUN 18 mg/dL (7-21) 03/01/17 10:30 Creatinine 1.2 mg/dl (0.8-1.5) 03/01/17 10:30 Est GFR ( Amer) > 60 03/01/17 10:30 Est GFR (Non-Af Amer) > 60 03/01/17 10:30 Random Glucose 117 mg/dL (70-110) H 03/01/17 10:30 Calcium 8.8 mg/dL (8.4-10.5) 03/01/17 10:30 Total Bilirubin 1.4 mg/dL (0.2-1.3) H 03/01/17 10:30 AST 107 U/L (17-59) H D 03/01/17 10:30 ALT 44 U/L (7-56) 03/01/17 10:30 Alkaline Phosphatase 75 U/L (38-126) 03/01/17 10:30 Total Protein 6.9 g/dL (5.8-8.3) 03/01/17 10:30 Albumin 3.6 g/dL (3.0-4.8) 03/01/17 10:30 Globulin 3.2 gm/dL 03/01/17 10:30 Albumin/Globulin Ratio 1.1 (1.1-1.8) 03/01/17 10:30 Attending/Attestation - Attestation I have personally seen and examined this patient.: Yes I have fully participated in the care of the patient.: Yes I have reviewed all pertinent clinical information, including history, physical exam and plan: Yes Notes (Text): 03/01/17 15:50 66 year old male with past medical history of hypertension and COPD who presented s/p fall found to have fracture of distal tibia/fibula. He is s/p external fixation last week and s/p ORIF yesterday. He is doing well postoperatively. He is cleared for discharged by ortho and PT. He has mild elevation of AST today (?secondary to abx). Recommended to monitor with pmd as outpatient. Patient is discharged home today to follow up with pmd. He was counselled on alcohol abstinence. Catherine Arreaga MD Hospitalist.
[2017-03-01] MEDS: Tiotropium 18 mcg Cap For Inhalation IH SCH (17:02)
--- NOTE | 2017-03-02 00:15 | DS ---
ORTHOPEDIC REPORT HISTORY OF PRESENT ILLNESS: This is a 66-year-old male, presently in 575, bed 1. He is 1 day postop from ORIF of an unstable fracture dislocation, right ankle. He is prepared to go home with Toradol p.o. 1 every 6 hours p.r.n. pain, and we will see him in the office in approximately 2 weeks to call for an appointment. Right now, he is in a coaptation splint. Instructions are strict elevation, no weight bearing, and to elevate as much as possible. Initially, he did come to the hospital 02/17/2017, for fracture dislocation of the right ankle so we put him in an external fixator transarticular on 02/17/2017, and we held him in the hospital in the PCU and elevated and instructions not to put weight on it. Then when the swelling was down, we did a formal surgery on 02/28/2017, putting a lateral fibular plate on that right ankle with syndesmotic screw and closed. A treatment for the highly comminuted medial malleolus, but it is well reduced, he is in a splint, and he is in a good compression dressing. I will see him in the office in 2 weeks to evaluate the wound and see if we can take the sutures out. FINAL DIAGNOSIS: Fracture dislocation, right ankle, treated initially with transarticular external fixator in the right ankle and then had a formal open reduction and internal fixation on 02/28/2017. Naga Jeff DO MTDNader
== END 2017-03-01 17:48 | disposition home or self-care (01) ==
LOC: SDS 07:18 → 5RSO 12:11 → SDS 03-01 17:48
PROVIDERS: ATTEND Internal Medicine
DX: S82.841A Displaced bimalleolar fracture of right lower leg, initial encounter for closed fracture (principal); F17.200 Nicotine dependence, unspecified, uncomplicated; J44.9 Chronic obstructive pulmonary disease, unspecified; K50.90 Crohn's disease, unspecified, without complications; I10 Essential (primary) hypertension; W19.XXXA Unspecified fall, initial encounter; Z23 Encounter for immunization; Z90.49 Acquired absence of other specified parts of digestive tract; Z88.5 Allergy status to narcotic agent
CPT/HCPCS: 20694; 27814; 36415; 80053; 85025; 90732; 97161; C1713 ×10; G0009; G8978; G8979; J0690; J1885 ×2; J7120 ×2

== ENCOUNTER 2018-05-24 10:38 | Outpatient (CLI) | payer MEDICARE, OTHER | END 2018-05-24 10:39 | disposition home or self-care (01) | LOC: LAB 10:38 ==